=== PATIENT | female | born 1990 | race Caucasian/White ===

== ENCOUNTER 2017-01-15 21:47 | Inpatient (IN) | payer OTHER, SELFPAY ==
[~2017-01-15] VITALS: Ht 162.6 cm; Wt 55.5 kg
[2017-01-15] MEDS ORDERED: ACTIVATED CHARCOAL PO ONE (22:45)
[2017-01-15] MEDS ORDERED: SORBITOL PO ONE (22:45)
[2017-01-15] MEDS ORDERED: CHARCOAL ACTIVATED LIQUID 25 GM/120 ML BTL As Ordered ONE (22:53)
[2017-01-15] MEDS ORDERED: CHARCOAL ACTIVATED LIQUID 25 GM/120 ML BTL NG ONE (23:00)
[2017-01-15 23:01] LABS: MEAN CORPUSCULAR HEMOGLOBIN 26.8 pg (27.0-33.0); MEAN CORPUSCULAR HGB CONC 33.2 g/dl (32.0-36.5); MEAN CORPUSCULAR VOLUME 80.5 fl (80.0-96.0); RED CELL DISTRIBUTION WIDTH 14.4 % (11.5-14.5); WHITE BLOOD COUNT 5.8 K/mm3 (4.0-10.0)
[2017-01-15 23:14] LABS: CONTROL LINE HCG INT CTR LINE PRESENT
[2017-01-15 23:18] LABS: METHADONE URINE NEGATIVE (NEGATIVE)
[2017-01-15 23:48] LABS: ALBUMIN 3.9 GM/DL (3.2-5.2); ALBUMIN/GLOBULIN RATIO 1.22 (1.00-1.93); ALKALINE PHOSPHATASE 57 U/L (45-117); ALT/SGPT 20 U/L (12-78); ANION GAP 8 MEQ/L (8-16); AST/SGOT 15 U/L (15-37); BILIRUBIN,DIRECT < 0.1 MG/DL (0.0-0.2); BILIRUBIN,TOTAL 0.5 MG/DL (0.2-1.0); BLOOD UREA NITROGEN 11 MG/DL (7-18); CALCIUM LEVEL 9.2 MG/DL (8.5-10.1); CARBON DIOXIDE LEVEL 25 MEQ/L (21-32); CHLORIDE LEVEL 107 MEQ/L (98-107); CREATININE FOR GFR 0.61 MG/DL (0.55-1.02); GLOMERULAR FILTRATION RATE > 60.0 (>60); GLUCOSE, FASTING 90 MG/DL (70-105); POTASSIUM SERUM 3.5 MEQ/L (3.5-5.1); SODIUM LEVEL 140 MEQ/L (136-145); TOTAL PROTEIN 7.1 GM/DL (6.4-8.2)
[2017-01-16] MEDS ORDERED: ZOLO50TA PO (00:06)
--- NOTE | 2017-01-16 07:10 | ECGEPIP ---
Stationary ECG Study [facility] - ED Test Date: 2017-01-15 Pat Name: SHELBY CESAR Department: Room: - Gender: F Client Service And Consulting Manager: : 1990 Requested By: CATINA CLANCY Order Number: [id number] Reading MD: Quinn Duncan Measurements Intervals [place] Rate: 71 P: 68 AR: 183 QRS: 64 QRSD: 92 T: 45 QT: 348 QTc: 379 Interpretive Statements SINUS RHYTHM WITH SINUS ARRHYTHMIA NO PRIORS Electronically Signed On 01-16-2017 7:10:15 EDT by Quinn Duncan
[2017-01-16 09:05] VITALS: BP 125/85
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
[2017-01-16] MEDS ORDERED: HYDR100C PO (11:08)
[2017-01-16] MEDS ORDERED: AMBI5TAB PO (11:08)
[2017-01-16] MEDS ORDERED: MIREIUD IU (11:09)
[2017-01-16] MEDS ORDERED: traZODone 50 MG TAB PO PRN (11:15)
[2017-01-16] MEDS ORDERED: MOM 30ML SUSPENSION UDC PO PRN (11:15)
[2017-01-16] MEDS ORDERED: MAALOX 30 ML SUSP *UDC PO PRN (11:15)
[2017-01-16] MEDS: CitaloPRAM (CeleXA) 10 MG TABLET PO SCH (15:42)
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
[2017-01-16 18:00] VITALS: BP 124/72
[2017-01-17 07:27] VITALS: BP 117/67
[2017-01-17] MEDS: CitaloPRAM (CeleXA) 10 MG TABLET PO SCH (08:17)
[2017-01-17 08:31] LABS: MEAN CORPUSCULAR HEMOGLOBIN 26.4 pg (27.0-33.0); MEAN CORPUSCULAR HGB CONC 32.2 g/dl (32.0-36.5); MEAN CORPUSCULAR VOLUME 82.1 fl (80.0-96.0); RED CELL DISTRIBUTION WIDTH 14.6 % (11.5-14.5); WHITE BLOOD COUNT 4.7 K/mm3 (4.0-10.0)
[2017-01-17 08:50] LABS: THYROXINE (T4) 10.7 UG/DL (4.5-12.0)
--- NOTE | 2017-01-17 09:13 | MHIPNPDOC ---
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 Patient denies prior psychiatric inpatient treatment, denied history of prior suicide attempts to appeals writer, however, per ER report, stated she has history of 2 prior suicide attempts as teenager by way of strangulation and cutting, endorses history of self-injurious behavior involving cutting between the ages of 14 and 15. Casket Assembler met with patient today to assess treatment progress on inpatient unit. Patient continues to appear depressed, is tearful at times, rates current anxiety level as 1/10, depression 7/10 adding "I feel more depressed when I'm alone," denies suicidal and homicidal ideation, denies auditory and visual hallucinations, denies urge to engage in self-injurious behavior. Patient started Celexa yesterday and utilized trazodone for sleep last night, reports some improvement to sleep but indicates trazodone was only partially effective, makes request for trazodone dose increase. Patient states energy level remains low and she continues to struggle with concentration and focus challenges, described appetite as "normal." Patient states visited last night and describes visit as "sad but okay, I'm still angry but I'm not really sure why." Patient speaks openly about recent incident where she feels her was " not there for me, he went to a movie with friends and ignored me when I said I needed him for support." Patient denies symptoms of physical pain and presents with no signs of acute distress at time of interaction. VITALS: See below NEW TEST RESULTS: 7/14/17 labs indicated elevated RDW and low Hgb, HCT, MCH, TSH within normal limits. PA is aware and monitoring. MEDICAL/SURGICAL HISTORY: Patient denies history of chronic health conditions, has history of wisdom tooth extraction. Patient denies history of seizure or head injury. Lab results at time of admission indicate low Hgb, HCT, MCH, and elevated TSH. PA is aware and evaluating HCG negative. Patient utilizes Mirena device. Risks of psychotropic medications to unborn child should patient become while taking psychotropic medication were reviewed and patient verbalized understanding. 01/16/17 EKG sinus rhythm with sinus arrhythmia no priors. Patient is asymptomatic, clinical consultation sought with recommendation made for follow- up outpatient. UDS negative CURRENT MEDICATIONS: See below MENTAL STATUS EXAMINATION: General appearance: Patient is a 26-year old female, who is cooperative and pleasant, engageable, makes fair eye contact, appears less disheveled today, dressed in hospital clothing, ambulates with steady gait, appears stated age Speech: Of normal rate, rhythm, volume, spontaneous, coherent Thought processes: Linear, logical, rational Thought content: Rational, logical, no tangentiality or paranoia noted Abstract reasoning and computation: Appears intact Description of associations: Intact Description of abnormal or psychotic thoughts: Denies suicidal and homicidal ideation, denies auditory or visual hallucinations, does not appear to be responding to internal stimuli, does not endorse bizarre or paranoid ideations, and denies preoccupation with violence or obsessions Judgment: Poor Insight: Poor Orientation: A and O 3 Recent and remote memory: Appears intact Attention span and concentration: Appears within normal limits Fund of knowledge: Appears adequate Mood: "Pretty sad, depressed." Patient appears depressed and anxious, no mood lability noted Affect: Blunted, tearful at times. DIAGNOSES: Major depressive disorder, recurrent, severe, rule out adjustment disorder ASSESSMENT: Patient appears to be adjusting to unit, is visible, engages selectively with peers, is participating in unit programming, is cooperative with staff, and has presented with no behavior management challenges. Patient reports some improvement to symptoms of anxiety, continues to feel depressed, states she did not sleep well last night and requests dose increase to trazodone. Patient denies medication side effects. Will increase Celexa and trazodone in effort to reduce symptoms of anxiety and depression and improve sleep and will continue to titrate as tolerated by patient. Patient provided some conflicting information during assessment process, noted she has taken Zoloft in the past at 50 mg dose, states medication was initially effective but became ineffective, denies medication side effects, refused Zoloft medication restart. Patient has also taken hydroxyzine PRN in the past, denies need for medication at this time. Patient denies current suicidal or homicidal ideation and verbalizes awareness of how to access supportive services on the unit if needed. Will continue to monitor patient's response to medications and for medication side effects, will evaluate patient's safety, resolution of suicidal ideation, and discharge readiness. Patient indicates when prepared for discharge she would like to discharge to home with and children, adds she is agreeable to participating in outpatient psychotherapy and medication management, is requesting discharge coordination assistance in establishing continuity of care including individual therapy, marital counseling, and medication management through [employer] in preparation for PCS to [place] in February. MANAGEMENT PLAN: Increase Celexa to 20 mg po q am. Increase trazodone to 100 mg po hs PRN insomnia Maintain safety precautions Patient to attend groups and participate in unit programming to develop coping strategies Engage patient in discharge planning process and arrange meeting with support system to ensure safe discharge planning when appropriate Patient to follow up with PCM upon discharge TIME SPENT: 35 minutes Vital Signs Vital Signs Date Time Temp Pulse Resp B/P (MAP) Pulse Ox O2 Delivery O2 Flow Rate FiO2 01/17/17 07:27 98.5 69 16 117/67 (84) Room Air 01/16/17 09:05 99 Laboratory Data 24H Labs Laboratory Tests 2 01/17/17 07:31: Thyroid Stimulating Hormone (TSH) 3.170, Free Thyroxine Index 3.5, Thyroxine (T4 ) 10.7, Triiodothyronine (T3) Uptake 33 CBC/BMP Laboratory Tests 01/17/17 07:31 Red Blood Count 4.25, Mean Corpuscular Volume 82.1, Mean Corpuscular Hemoglobin 26.4 L, Mean Corpuscular Hemoglobin Concent 32.2, Red Cell Distribution Width 14.6 H Current Medications Current Medications Acetaminophen (Tylenol Tab) 650 mg Q6HP PRN PO HEADACHE or DISCOMFORT; Start at 11:15; Stop 02/15/17 at 11:14 Al Hydrox/Mg Hydrox/Simethicone (Mylanta) 30 ml Q4HP PRN PO HEARTBURN/ INDIGESTION; Start 01/16/17 at 11:15; Stop 02/15/17 at 11:14 Citalopram Hydrobromide (CeleXA) 10 mg QAM PO Last administered on 01/17/17 08 :17; Start 01/16/17 at 09:00; Stop 02/15/17 at 08:59 Home Med (Med Rec Complete!) ASDIRECTED XX ; Start 01/16/17 at 00:15; Stop at 00:15; Status DC Magnesium Hydroxide (Milk Of Magnesia) 30 ml DAILYPRN PRN PO CONSTIPATION; Start 01/16/17 at 11:15; Stop 02/15/17 at 11:14 Trazodone HCl (Desyrel) 50 mg QHSP PRN PO INSOMNIA Last administered on 21:44; Start 01/16/17 at 11:15; Stop 02/15/17 at 11:14 Allergies Coded Allergies: No Known Allergies (Unverified , 01/15/17) Ailin Maza Jan 17, 2017 09:13
[2017-01-17] MEDS ORDERED: traZODone 100 MG TAB PO PRN (11:15)
[2017-01-17] MEDS ORDERED: CitaloPRAM (CeleXA) 10 MG TABLET PO ONE (11:15)
[2017-01-17 18:00] VITALS: BP 132/86
[2017-01-18] MEDS: ACETAMINOPHEN TAB 650MG DOSE (2X325MG) PO PRN ×2 (06:24→19:01)
[2017-01-18 06:43] VITALS: BP 127/75
[2017-01-18 07:47] LABS: MEAN CORPUSCULAR HEMOGLOBIN 26.5 pg (27.0-33.0); MEAN CORPUSCULAR HGB CONC 32.5 g/dl (32.0-36.5); MEAN CORPUSCULAR VOLUME 81.4 fl (80.0-96.0); RED CELL DISTRIBUTION WIDTH 14.4 % (11.5-14.5)
[2017-01-18 08:05] LABS: ANION GAP 6 MEQ/L (8-16); BLOOD UREA NITROGEN 17 MG/DL (7-18); CALCIUM LEVEL 9.3 MG/DL (8.5-10.1); CARBON DIOXIDE LEVEL 28 MEQ/L (21-32); CHLORIDE LEVEL 104 MEQ/L (98-107); CREATININE FOR GFR 0.63 MG/DL (0.55-1.02); GLOMERULAR FILTRATION RATE > 60.0 (>60); GLUCOSE, FASTING 92 MG/DL (70-105); MAGNESIUM LEVEL 2.2 MG/DL (1.8-2.4); POTASSIUM SERUM 4.1 MEQ/L (3.5-5.1); SODIUM LEVEL 138 MEQ/L (136-145)
--- NOTE | 2017-01-18 08:25 | IPN ---
DATE: 01/18/[address] Bennett that there is a patient in inpatient mental health unit that had apparently fell last night around 12 o'clock midnight with no complaints. As per Dr. Bennett, the patient reported some lightheadedness, but he does not know the full story. Furthermore, Dr. Bennett does not know the name, so I had to call inpatient mental health and realized that the patient is Ms. Yohana El. Subsequently, I went to examine the patient. The patient reported that last night, after one hour after taking the double dose trazodone, the patient felt lightheaded when walking and subsequently was eased to the floor by one of the other inpatient mental health patients. The patient denies any loss of consciousness, stated that she occasionally had lightheaded on the outside, but it is very rare, about once or twice a year. This morning, the patient still does not feel completely back to herself initially. Denies any headache and subsequently went to sleep. This morning, the patient woke up and reported some posterior head pain, very mild, about 2 out of 10. Denies any nausea, fevers, chills, chest pain, pressure or discomfort or palpitations, vision change. No orthostatics were done last night, but the patient had normal vital signs right after her fall. Orthostatic this morning was negative. The patient denies any nausea or vomiting, auditory or visual hallucinations. VITAL SIGNS: Temperature 98.4, pulse 67, respirations 16, blood pressure 127/75. LABORATORY: Still pending. PHYSICAL EXAMINATION: GENERAL: The patient is alert and oriented times three and in no acute distress. HEENT: Normocephalic, atraumatic. PULMONARY: Bilaterally clear to auscultation. CARDIAC: Regular rate and rhythm. Normal S1, S2. ABDOMEN: Soft, nontender. Positive bowel sounds. EXTREMITIES: No edema in bilateral lower extremities. NEUROLOGIC: Cranial nerves II through XII grossly intact. No focal deficits. Ambulates without problem. ASSESSMENT AND PLAN: This is a 26-year-old female patient with underlying medical history of drug overdose, depression, anxiety, admitted under psychiatry. Medicine called for evaluation given fall last night with some mild headache. 1. Lightheadedness with fall, likely secondary to the double dose of trazodone. We will cut the dose back to what it was originally, 50 mg by mouth at night. We will advise getting orthostatics if that happens again from the start. Laboratory has been ordered. CT of the head has been ordered. Likely has some mild concussion but no soft tissue swelling on physical examination. Tylenol as needed. Neuro checks. If symptoms persist, we will advise cutting the trazodone altogether. 2. Depression, anxiety and suicide attempts. Further management as per psychiatrist.
[2017-01-18] MEDS: CitaloPRAM (CeleXA) 20 MG TAB PO SCH (08:38)
--- NOTE | 2017-01-18 10:06 | REP ---
CT Head without contrast HISTORY: Fall COMPARISON: None There is no intraparenchymal hemorrhage, acute infarct, mass or midline shift. The ventricular system is normal in appearance. There is no extra cerebral collection. There is no fracture. The visualized sinuses are clear. IMPRESSION: There is no intracranial lesion. Signed by Kamari Amaya MD 01/18/2017 09:58 A
[2017-01-18 18:00] VITALS: BP 123/80
--- NOTE | 2017-01-18 19:36 | IPN ---
DATE: 01/18/2017 VITAL SIGNS: Temperature 98.4, pulse 67, respirations 16, blood pressure 127/75. 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 She has a diagnosis of major depression, recurrent. The patient felt quite depressed this morning initially. She left group early. She went to her bedroom and cried. Her mood is better this afternoon however. She is socializing more and finds social interactions therapeutic. Last night she fell after taking her trazodone dose of 100 mg at bedtime. The patient had a CT scan of the head which was negative. Her trazodone dosage was hence lowered. MENTAL STATUS EXAMINATION: The patient is alert, oriented and cooperative. Affect is sad. Mood is moderately depressed, mildly anxious. She is not currently voicing any suicidal ideation. No signs of psychosis, not hearing voices. No paranoia or thought disorder. Insight and judgment are fair. No signs of impulsivity. DIAGNOSIS: Major depression, recurrent. PLAN: Trazodone reduced to 50 mg at bedtime as needed. No change in Celexa. MTDD
[2017-01-19 06:25] VITALS: BP 107/62
[2017-01-19] MEDS: CitaloPRAM (CeleXA) 20 MG TAB PO SCH (08:35)
[2017-01-19] MEDS: hydrOXYzine 50 MG TAB PO PRN (11:20)
--- NOTE | 2017-01-19 13:58 | IPN ---
DATE: 01/19/2017 Temperature 98.9, pulse 87, respirations 16, blood pressure 107/62. CURRENT MEDICATIONS: - Celexa 20 mg in the morning - trazodone 50 mg at night as needed - Atarax 50 mg every 4 hours as needed HISTORY OF PRESENT ILLNESS: The patient reports anxiety symptoms. She has Atarax 100 mg at home but that is too strong. The patient is given a new order for Atarax 50 mg every 4 hours as needed. The patient was afraid to take the trazodone last night, even the lower dosage. Subsequently, she did not sleep well last night at all. Her could not come in last night for visiting hours. She has spoken to him and the children by phone, however. She has no panic attacks. She is tolerating the Celexa well. She is encouraged to take her trazodone tonight. MENTAL STATUS EXAMINATION: The patient is alert, oriented and cooperative. Mood is still mildly to moderately depressed. Anxiety is mild to moderate as well. She is not currently suicidal. No sign of psychosis. Insight and judgment are fair. Grooming and hygiene appear good. No signs of impulsivity. DIAGNOSIS: Major depression, recurrent, moderate severity. PLAN: Atarax 50 mg every 4 hours as needed for anxiety.
[2017-01-19 18:00] VITALS: BP 138/87
[2017-01-19] MEDS: traZODone 50 MG TAB PO PRN (22:58)
[2017-01-20 06:00] VITALS: BP 132/82
[2017-01-20] MEDS: CitaloPRAM (CeleXA) 20 MG TAB PO SCH (08:04)
--- NOTE | 2017-01-20 09:23 | MHIPNPDOC ---
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 Patient indicates "I had been thinking about suicide for a while and I just wanted to stop feeling like this." Patient states she had a "bad day yesterday, my marriage is struggling, we are going to be PCS'ing in February, and I just found out yesterday that my is going to be deployed for 9 months in August." Patient reportedly went to [employer] to hot die picker dinner for family yesterday evening and then came home and overdosed on Ambien, was reportedly talking to her mother on the telephone when noticed change in mental status and patient admitted to overdose. Patient denies prior psychiatric inpatient treatment, denied history of prior suicide attempts to contract writer, however, per ER report, stated she has history of 2 prior suicide attempts as teenager by way of strangulation and cutting, endorses history of self-injurious behavior involving cutting between the ages of 14 and 15. Electric Vehicle Electrician met with patient today to assess treatment progress on inpatient unit. Patient was observed to be lying in bed, crying, indicated she does not feel supported by her family and informs contract writer that her parents "yelled at me when I called them on the phone and told me I'm stupid because I'm in the hospital." Patient also notes she feels she cannot talk to her . Patient reports current anxiety level of 4/10, depression 8/10, denies suicidal and homicidal ideation, denies auditory and visual hallucinations, denies urge to engage in self-injurious behavior. Patient states she is uncertain as Celexa is helping to address symptoms of depression noting, "I definitely don't feel worse, but I' m not sure if I feel better." Patient reports improvement to sleep with trazodone, also utilized hydroxyzine which she indicates was helpful in reducing symptoms of anxiety. Patient denies medication side effects. Patient informs contract writer she has a history of "dizziness and passing out" which preexist psychotropic medication trial adding, "in the past I get lightheaded and then I fall." Patient states energy level remains low and she continues to struggle with concentration and focus challenges, indicates appetite is stable. Patient states visited over the weekend and notes she does not feel he is supportive, adds she is not sure if she wants to continue marriage. Patient denies symptoms of physical pain and presents with no signs of acute distress at time of interaction. VITALS: See below NEW TEST RESULTS: 01/18/17 labs indicate low Hgb, HCT, MCH, anion gap. PA is aware and evaluating MEDICAL/SURGICAL HISTORY: Patient denies history of chronic health conditions, has history of wisdom tooth extraction. Patient denies history of seizure or head injury. Lab results at time of admission indicate low Hgb, HCT, MCH, and elevated TSH. PA has evaluated. 01/17/17 labs indicated elevated RDW and low Hgb, HCT, MCH, TSH within normal limits. PA is aware and monitoring. HCG negative. Patient utilizes Mirena device. Risks of psychotropic medications to unborn child should patient become while taking psychotropic medication were reviewed and patient verbalized understanding. 01/16/17 EKG sinus rhythm with sinus arrhythmia no priors. Patient is asymptomatic, clinical consultation sought with recommendation made for follow- up outpatient. UDS negative 01/18/[address] no intracranial lesion CURRENT MEDICATIONS: See below MENTAL STATUS EXAMINATION: General appearance: Patient is a 26-year old female, who is cooperative, tearful and crying, makes poor eye contact, appears disheveled, dressed in own clothing, ambulates with steady gait, appears stated age Speech: Of normal rate, rhythm, volume, spontaneous, coherent Thought processes: Linear, logical, rational Thought content: Rational, logical, no tangentiality or paranoia noted Abstract reasoning and computation: Appears intact Description of associations: Intact Description of abnormal or psychotic thoughts: Denies suicidal and homicidal ideation, denies auditory or visual hallucinations, does not appear to be responding to internal stimuli, does not endorse bizarre or paranoid ideations, and denies preoccupation with violence or obsessions Judgment: Poor Insight: Poor Orientation: A and O 3 Recent and remote memory: Appears intact Attention span and concentration: Appears within normal limits Fund of knowledge: Appears adequate Mood: "I'm sad, I woke up that way, I don't know why." Patient appears depressed and anxious, no mood lability noted Affect: Blunted, tearful at times. DIAGNOSES: Major depressive disorder, recurrent, severe, rule out adjustment disorder ASSESSMENT: Patient appears to be adjusting to unit, is visible at times, engages selectively with peers, is participating in unit programming, is cooperative with staff, and has presented with no behavior management challenges. Patient indicates today she is not sure if Celexa is helping to reduce symptoms of anxiety and depression, indicates medication is definitely not exacerbating symptoms. Patient is now taking trazodone and hydroxyzine as needed, indicates medications are effective and denies medication side effects. Patient denies repeat of episode of dizziness which resulted in fall over weekend, has undergone head CT. Patient denies current suicidal or homicidal ideation and verbalizes awareness of how to access supportive services on the unit if needed. Will continue to monitor patient's response to medications and for medication side effects, will evaluate patient's safety, resolution of suicidal ideation, and discharge readiness. Patient indicates when prepared for discharge she would like to discharge to home with children, states today she is not sure she wants to continue marriage with but notes she intends to PCS to [place]. Patient states she is agreeable to participating in outpatient psychotherapy and medication management, is requesting discharge coordination assistance in establishing continuity of care including individual therapy, marital counseling, and medication management through [employer] in preparation for PCS to [place] in February. MANAGEMENT PLAN: Continue Celexa to 20 mg po q am, trazodone 50 mg po hs PRN insomnia, and trucks is using 50 mg po q 4 hours PRN anxiety. Maintain safety precautions Patient to attend groups and participate in unit programming to develop coping strategies Engage patient in discharge planning process and arrange meeting with support system to ensure safe discharge planning when appropriate Patient to follow up with PCM upon discharge TIME SPENT: 35 minutes Vital Signs Vital Signs Date Time Temp Pulse Resp B/P (MAP) Pulse Ox O2 Delivery O2 Flow Rate FiO2 01/20/17 06:00 97.9 100 16 132/82 (99) 01/17/17 18:00 Room Air 01/16/17 09:05 99 Current Medications Current Medications Acetaminophen (Tylenol Tab) 650 mg Q6HP PRN PO HEADACHE or DISCOMFORT Last administered on 01/18/17t 19:01; Start 01/16/17 at 11:15; Stop 02/15/17 at 11:14 Al Hydrox/Mg Hydrox/Simethicone (Mylanta) 30 ml Q4HP PRN PO HEARTBURN/ INDIGESTION; Start 01/16/17 at 11:15; Stop 02/15/17 at 11:14 Citalopram Hydrobromide (CeleXA) 10 mg QAM PO Last administered on 01/17/17 08 :17; Start 01/16/17 at 09:00; Stop 01/17/17 at 11:07; Status DC Citalopram Hydrobromide (CeleXA) 20 mg QAM PO Last administered on 01/20/17 08 :04; Start 01/18/17 at 09:00; Stop 02/17/17 at 08:59 Home Med (Med Rec Complete!) ASDIRECTED XX ; Start 01/16/17 at 00:15; Stop at 00:15; Status DC Hydroxyzine HCl (Atarax) 50 mg Q4HP PRN PO ANXIETY/AGITATION Last administered on 01/19/17 11:20; Start 01/19/17 at 10:00; Stop 02/18/17 at 09:59 Magnesium Hydroxide (Milk Of Magnesia) 30 ml DAILYPRN PRN PO CONSTIPATION; Start 01/16/17 at 11:15; Stop 02/15/17 at 11:14 Trazodone HCl (Desyrel) 50 mg QHSP PRN PO INSOMNIA Last administered on 21:44; Start 01/16/17 at 11:15; Stop 01/17/17 at 11:06; Status DC Trazodone HCl (Desyrel) 50 mg QHSP PRN PO INSOMNIA Last administered on 22:58; Start 01/18/17 at 07:00; Stop 02/17/17 at 06:59 Trazodone HCl (Desyrel) 100 mg QHSP PRN PO INSOMNIA Last administered on 23:07; Start 01/17/17 at 11:15; Stop 01/18/17 at 07:00; Status DC Allergies Coded Allergies: No Known Allergies (Unverified , 01/15/17) Ailin Maza Jan 20, 2017 09:22
[2017-01-20 11:26] LABS: MEAN CORPUSCULAR HEMOGLOBIN 26.6 pg (27.0-33.0); MEAN CORPUSCULAR VOLUME 80.4 fl (80.0-96.0); RED CELL DISTRIBUTION WIDTH 14.4 % (11.5-14.5); WHITE BLOOD COUNT 5.8 K/mm3 (4.0-10.0)
[2017-01-20 11:57] LABS: FOLATE 17.5 NG/ML (>5.4)
[2017-01-20 11:58] LABS: PERCENT SATURATION 9.2 % (13.2-37.4)
[2017-01-20] MEDS: FERROUS SULFATE 325MG TAB PO SCH (15:57)
[2017-01-20 18:00] VITALS: BP 118/63
[2017-01-20] MEDS: hydrOXYzine 50 MG TAB PO PRN (18:46)
[2017-01-20] MEDS: traZODone 50 MG TAB PO PRN (22:57)
[2017-01-21 06:34] VITALS: BP 114/62
[2017-01-21] MEDS: CitaloPRAM (CeleXA) 20 MG TAB PO SCH (08:45)
[2017-01-21] MEDS: FERROUS SULFATE 325MG TAB PO SCH (08:45)
[2017-01-21] MEDS: hydrOXYzine 50 MG TAB PO PRN (10:25)
[2017-01-21 18:00] VITALS: BP 130/83
--- NOTE | 2017-01-21 18:26 | MHIPNPDOC ---
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 Patient denies prior psychiatric inpatient treatment, denied history of prior suicide attempts to keno writer / runner, however, per ER report, stated she has history of 2 prior suicide attempts as teenager by way of strangulation and cutting, endorses history of self-injurious behavior involving cutting between the ages of 14 and 15. Lead Ios Developer met with patient today to assess treatment progress on inpatient unit. Patient was observed to be sitting up in bed, stated she feels "a little better today," reports some improvement to symptoms of anxiety, moderate depression, denied suicidal and homicidal ideation, denied auditory and visual hallucinations, denied urge to engage in self-injurious behavior. For most of interaction patient sat with face buried under hair, in hands, between knees, made very little eye contact with keno writer / runner, spoke in low volume and provided minimal responses. Patient indicates she thinks, but remains unsure, if Celexa is helping to address symptoms of depression, denies medication side effects. Patient has been utilizing hydroxyzine to address intermittent symptoms of anxiety, indicates medication is effective. Patient states trazodone is ineffective, makes request for dosing increase, was reminded of recent syncopal episode which patient has attributed to medication though she also reports having a pre-existing history of "dizziness and falling." Patient states energy level remains low and she continues to struggle with concentration and focus challenges, indicates appetite is stable. Patient informs keno writer / runner today she is not sure if she wants to attempt to salvage relationship with stating, "I've given up but want to try for the kids, he is not there to support me." Patient denies symptoms of physical pain and presents with no signs of acute distress at time of interaction. Addendum: Though patient has indicated she is eating regularly, keno writer / runner was informed by staff that patient is not eating well. Patient indicates she has a history of "starving myself when I was 14 because I was being bullied; I got down to 90 pounds." Patient has been placed on I and O for monitoring purposes. VITALS: See below NEW TEST RESULTS: 01/18/17 labs indicate low Hgb, HCT, MCH, anion gap. PA is aware and addressing MEDICAL/SURGICAL HISTORY: Patient denies history of chronic health conditions, has history of wisdom tooth extraction. Patient denies history of seizure or head injury. Lab results at time of admission indicate low Hgb, HCT, MCH, and elevated TSH. PA has evaluated. 01/17/17 labs indicated elevated RDW and low Hgb, HCT, MCH, TSH within normal limits. PA is aware and monitoring. HCG negative. Patient utilizes Mirena device. Risks of psychotropic medications to unborn child should patient become while taking psychotropic medication were reviewed and patient verbalized understanding. 01/16/17 EKG sinus rhythm with sinus arrhythmia no priors. Patient is asymptomatic, clinical consultation sought and patient has been informed that recommendation is being made for follow-up outpatient. UDS negative 01/18/[address] no intracranial lesion CURRENT MEDICATIONS: See below MENTAL STATUS EXAMINATION: General appearance: Patient is a 26-year old female, who is generally cooperative, tearful at times, makes poor eye contact, appears less disheveled today, dressed in own clothing, ambulates with steady gait, appears stated age Speech: Of normal rate, rhythm, low volume, spontaneous, coherent Thought processes: Linear, logical, rational Thought content: Rational, logical, no tangentiality or paranoia noted Abstract reasoning and computation: Appears intact Description of associations: Intact Description of abnormal or psychotic thoughts: Denies suicidal and homicidal ideation, denies auditory or visual hallucinations, does not appear to be responding to internal stimuli, does not endorse bizarre or paranoid ideations, and denies preoccupation with violence or obsessions Judgment: Poor Insight: Poor Orientation: A and O 3 Recent and remote memory: Appears intact Attention span and concentration: Appears within normal limits Fund of knowledge: Appears adequate Mood: "I'm thinking maybe I'm less sad today." Patient appears depressed and anxious, no mood lability noted Affect: Flat, tearful at times, no brightening DIAGNOSES: Major depressive disorder, recurrent, severe, rule out adjustment disorder. Eating disorder by history ASSESSMENT: Patient appears to be adjusting to unit, is visible at times, engages selectively with peers, is participating in some unit programming. Per EMR, patient apparently attempted to monopolize group therapy today, was very vocal about dissatisfaction with staff. Patient has indicates she thinks Celexa is helping to reduce symptoms of anxiety and depression, is agreeable to dose increase in effort to further address symptoms. Patient is making requests for trazodone dose increase, however, due to patient attributing recent lightheadedness and fall to medication, patient is receptive to trialing low- dose Abilify hs in effort to address mood and improve sleep. Patient is aware she has hydroxyzine available to her as needed, denies medication side effects. Patient denies repeat of episode of dizziness which resulted in fall over weekend, has undergone head CT. Patient denies current suicidal or homicidal ideation and verbalizes awareness of how to access supportive services on the unit if needed. Clinical consultation sought regarding need for CPS report, keno writer / runner informed that CPS will not accept report if stable adult present during events in question. pilates coordinator is attempting to communicate with Sylvester Almanza to ensure safe discharge as patient and prepare to [facility] to [place]. Will continue to monitor patient's response to medications and for medication side effects, will evaluate patient's safety, resolution of suicidal ideation, and discharge readiness. Patient indicates when prepared for discharge she would like to discharge to home with children, reiterates she is not sure she wants to continue marriage with but notes she intends to PCS to [place] with him and their children. Patient states she is agreeable to participating in outpatient psychotherapy and medication management, is requesting discharge coordination assistance in establishing continuity of care including individual therapy, marital counseling, and medication management through [email or web address] in preparation for PCS to [place] in February. MANAGEMENT PLAN: Increase Celexa to 30 mg po q am. Discontinue trazodone 50 mg po hs PRN insomnia. Initiate Abilify 2.5 mg po q hs, continue hydroxyzine 50 mg po q 4 hours PRN anxiety. Patient placed on I and o Maintain safety precautions Patient to attend groups and participate in unit programming to develop coping strategies Engage patient in discharge planning process and arrange meeting with support system to ensure safe discharge planning when appropriate Patient to follow up with PCM upon discharge TIME SPENT: 35 minutes Vital Signs Vital Signs Date Time Temp Pulse Resp B/P (MAP) Pulse Ox O2 Delivery O2 Flow Rate FiO2 01/21/17 06:34 97.7 85 18 114/62 (79) 01/17/17 18:00 Room Air 01/16/17 09:05 99 Current Medications Current Medications Acetaminophen (Tylenol Tab) 650 mg Q6HP PRN PO HEADACHE or DISCOMFORT Last administered on 01/18/17 19:01; Start 01/16/17 at 11:15; Stop 02/15/17 at 11:14 Al Hydrox/Mg Hydrox/Simethicone (Mylanta) 30 ml Q4HP PRN PO HEARTBURN/ INDIGESTION; Start 01/16/17 at 11:15; Stop 02/15/17 at 11:14 Aripiprazole (AbiLIFY) 2.5 mg QHS PO ; Start 01/21/17 at 21:00; Stop 02/20/17 at 20:59 Citalopram Hydrobromide (CeleXA) 10 mg QAM PO Last administered on 01/17/17 08 :17; Start 01/16/17 at 09:00; Stop 01/17/17 at 11:07; Status DC Citalopram Hydrobromide (CeleXA) 20 mg QAM PO Last administered on 01/21/17 08 :45; Start 01/18/17 at 09:00; Stop 01/21/17 at 18:03; Status DC Citalopram Hydrobromide (CeleXA) 30 mg QAM PO ; Start 01/22/17 at 09:00; Stop at 08:59 Ferrous Sulfate (Ferrous Sulfate) 325 mg DAILY PO Last administered on 08:45; Start 01/20/17 at 09:00; Stop 02/19/17 at 08:59 Home Med (Med Rec Complete!) ASDIRECTED XX ; Start 01/16/17 at 00:15; Stop at 00:15; Status DC Hydroxyzine HCl (Atarax) 50 mg Q4HP PRN PO ANXIETY/AGITATION Last administered on 01/21/17 10:25; Start 01/19/17 at 10:00; Stop 02/18/17 at 09:59 Magnesium Hydroxide (Milk Of Magnesia) 30 ml DAILYPRN PRN PO CONSTIPATION; Start 01/16/17 at 11:15; Stop 02/15/17 at 11:14 Trazodone HCl (Desyrel) 50 mg QHSP PRN PO INSOMNIA Last administered on 21:44; Start 01/16/17 at 11:15; Stop 01/17/17 at 11:06; Status DC Trazodone HCl (Desyrel) 50 mg QHSP PRN PO INSOMNIA Last administered on 22:57; Start 01/18/17 at 07:00; Stop 01/21/17 at 18:03; Status DC Trazodone HCl (Desyrel) 100 mg QHSP PRN PO INSOMNIA Last administered on 23:07; Start 01/17/17 at 11:15; Stop 01/18/17 at 07:00; Status DC Allergies Coded Allergies: No Known Allergies (Unverified , 01/15/17) Ailin Maza Jan 21, 2017 18:26
[2017-01-22] MEDS: ACETAMINOPHEN TAB 650MG DOSE (2X325MG) PO PRN (03:20)
[2017-01-22 06:32] VITALS: BP 137/92
[2017-01-22] MEDS: CitaloPRAM (CeleXA) 10 MG TABLET PO SCH (08:27)
[2017-01-22] MEDS: FERROUS SULFATE 325MG TAB PO SCH (08:27)
--- NOTE | 2017-01-22 09:43 | MHIPNPDOC ---
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 Patient denies prior psychiatric inpatient treatment, denied history of prior suicide attempts to short story writer, however, per ER report, stated she has history of 2 prior suicide attempts as teenager by way of strangulation and cutting, endorses history of self-injurious behavior involving cutting between the ages of 14 and 15. Elephant Keeper met with patient today to assess treatment progress on inpatient unit. Patient was observed to be sitting up in bed, stated she feels her depression is somewhat better, indicates she is not sleeping well due to nighttime waking and roommate talking and snoring. Patient reports current anxiety level of 3/10 , depression 3/10, denies suicidal and homicidal ideation, denies auditory and visual hallucinations, denies urge to engage in self-injurious behavior. Patient feels medication regimen is effective except for sleep aid, makes request for new sleep medication. Patient continues to utilize hydroxyzine to address intermittent symptoms of anxiety. Patient denies medication side effects , then informs short story writer of intermittent and brief symptoms of "racing heart," began 2 days ago, patient indicates she thinks is anxiety related but is not certain. Patient denies headache, dizziness, shortness of breath, palpitations, and chest pain. Patient reports mild improvement to energy level, continues to struggle with concentration and focus, states appetite is stable and she has been eating more. Patient notes she had disturbing visit with and mother -in-law last night, states she wanted her [id number] to come for visit but not her who apparently brought their children to hospital as well which she did not want. Patient reiterates today she is not sure if she wants to continue in marriage. Patient denies symptoms of physical pain and presents with no signs of acute distress at time of interaction. Addendum: Though patient has indicated she is eating regularly, short story writer was informed on 01/21/17 by staff that patient is not eating well. Patient indicates she has a history of "starving myself when I was 14 because I was being bullied ; I got down to 90 pounds." Patient has been placed on I and O for monitoring purposes. VITALS: See below NEW TEST RESULTS: 01/18/17 labs indicate low Hgb, HCT, MCH, anion gap. PA has addressed. MEDICAL/SURGICAL HISTORY: Patient denies history of chronic health conditions, has history of wisdom tooth extraction. Patient denies history of seizure or head injury. Lab results at time of admission indicate low Hgb, HCT, MCH, and elevated TSH. PA has evaluated. 01/17/17 labs indicated elevated RDW and low Hgb, HCT, MCH, TSH within normal limits. PA is aware and monitoring. HCG negative. Patient utilizes Mirena device. Risks of psychotropic medications to unborn child should patient become while taking psychotropic medication were reviewed and patient verbalized understanding. 01/16/17 EKG sinus rhythm with sinus arrhythmia no priors. Patient is asymptomatic, clinical consultation sought and patient has been informed that recommendation is being made for follow-up outpatient. UDS negative 01/18/[address] no intracranial lesion ECHO ordered 01/22/17 post report of "racing heart," has history of abnormal EKG and syncopal episodes CURRENT MEDICATIONS: See below MENTAL STATUS EXAMINATION: General appearance: Patient is a 26-year old female, who is cooperative, no tearfulness today, makes improved eye contact, and exhibits adequate personal hygiene, dressed in own clothing, ambulates with steady gait, appears stated age Speech: Of normal rate, rhythm, low volume, spontaneous, coherent Thought processes: Linear, logical, rational Thought content: Rational, logical, no tangentiality or paranoia noted Abstract reasoning and computation: Appears intact Description of associations: Intact Description of abnormal or psychotic thoughts: Denies suicidal and homicidal ideation, denies auditory or visual hallucinations, does not appear to be responding to internal stimuli, does not endorse bizarre or paranoid ideations, and denies preoccupation with violence or obsessions Judgment: Poor Insight: Poor Orientation: A and O 3 Recent and remote memory: Appears intact Attention span and concentration: Appears within normal limits Fund of knowledge: Appears adequate Mood: "I'm feeling a little better." Patient appears slightly less depressed and anxious, no mood lability noted Affect: Blunted, more animated than yesterday, no tearfulness today, no brightening, congruent with mood DIAGNOSES: Major depressive disorder, recurrent, severe, rule out adjustment disorder. Eating disorder by history ASSESSMENT: Patient appears to be adjusting to unit, is visible at times, engages selectively with peers, is participating in some unit programming. Patient states Celexa and Abilify are helping to improve mood and reduce anxiety , has been utilizing hydroxyzine PRN, makes request for new sleep medication trial. Patient denies medication side effects at time of assessment. ECHO has been ordered due to patient report today of intermittent and brief symptoms of "racing heart," has history of syncopal episodes and abnormal EKG, currently denies cardiac related symptoms and has been instructed to inform nursing immediately if she experiences. Will initiate Rozerem in effort to improve sleep. Patient denies current suicidal or homicidal ideation and verbalizes awareness of how to access supportive services on the unit if needed. Clinical consultation has been sought regarding need for CPS report, short story writer informed that CPS will not accept report if stable adult present during events in question. digital coordinator is attempting to communicate with Sylvester Almanza to ensure safe discharge as patient and prepare to [facility] to [place]. Will continue to monitor patient's response to medications and for medication side effects, will evaluate patient's safety, resolution of suicidal ideation, and discharge readiness. Patient indicates when prepared for discharge she would like to discharge to home with children, reiterates she is not sure she wants to continue marriage with but notes she intends to PCS to [place] with him and their children. Patient states she is agreeable to participating in outpatient psychotherapy and medication management, is requesting discharge coordination assistance in establishing continuity of care including individual therapy, marital counseling, and medication management through [facility] in preparation for PCS to [place] in February. Patient has history of arrhythmia and recent abnormal EKG MANAGEMENT PLAN: Continue Celexa 30 mg po q am, Abilify 2.5 mg po q hs, and hydroxyzine 50 mg po q 4 hours PRN anxiety. Initiate med trial Rozerem 8 mg po hs PRN insomnia ECHO ordered 01/22/17 Patient remains on I and o Maintain safety precautions Patient to attend groups and participate in unit programming to develop coping strategies Engage patient in discharge planning process and arrange meeting with support system to ensure safe discharge planning when appropriate Patient to follow up with PCM regarding recent EKG results and any other health concerns upon discharge TIME SPENT: 35 minutes Vital Signs Vital Signs Date Time Temp Pulse Resp B/P (MAP) Pulse Ox O2 Delivery O2 Flow Rate FiO2 01/22/17 06:32 98.3 84 20 137/92 (107) Room Air 01/16/17 09:05 99 Current Medications Current Medications Acetaminophen (Tylenol Tab) 650 mg Q6HP PRN PO HEADACHE or DISCOMFORT Last administered on 01/22/17 03:20; Start 01/16/17 at 11:15; Stop 02/15/17 at 11:14 Al Hydrox/Mg Hydrox/Simethicone (Mylanta) 30 ml Q4HP PRN PO HEARTBURN/ INDIGESTION; Start 01/16/17 at 11:15; Stop 02/15/17 at 11:14 Aripiprazole (AbiLIFY) 2.5 mg QHS PO Last administered on 01/21/17 21:48; Start 01/21/17 at 21:00; Stop 02/20/17 at 20:59 Citalopram Hydrobromide (CeleXA) 10 mg QAM PO Last administered on 01/17/17 08 :17; Start 01/16/17 at 09:00; Stop 01/17/17 at 11:07; Status DC Citalopram Hydrobromide (CeleXA) 20 mg QAM PO Last administered on 01/21/17 08 :45; Start 01/18/17 at 09:00; Stop 01/21/17 at 18:03; Status DC Citalopram Hydrobromide (CeleXA) 30 mg QAM PO Last administered on 01/22/17 08 :27; Start 01/22/17 at 09:00; Stop 02/21/17 at 08:59 Ferrous Sulfate (Ferrous Sulfate) 325 mg DAILY PO Last administered on 08:27; Start 01/20/17 at 09:00; Stop 02/19/17 at 08:59 Home Med (Med Rec Complete!) ASDIRECTED XX ; Start 01/16/17 at 00:15; Stop at 00:15; Status DC Hydroxyzine HCl (Atarax) 50 mg Q4HP PRN PO ANXIETY/AGITATION Last administered on 01/21/17 10:25; Start 01/19/17 at 10:00; Stop 02/18/17 at 09:59 Magnesium Hydroxide (Milk Of Magnesia) 30 ml DAILYPRN PRN PO CONSTIPATION; Start 01/16/17 at 11:15; Stop 02/15/17 at 11:14 Trazodone HCl (Desyrel) 50 mg QHSP PRN PO INSOMNIA Last administered on 21:44; Start 01/16/17 at 11:15; Stop 01/17/17 at 11:06; Status DC Trazodone HCl (Desyrel) 50 mg QHSP PRN PO INSOMNIA Last administered on 22:57; Start 01/18/17 at 07:00; Stop 01/21/17 at 18:03; Status DC Trazodone HCl (Desyrel) 100 mg QHSP PRN PO INSOMNIA Last administered on 23:07; Start 01/17/17 at 11:15; Stop 01/18/17 at 07:00; Status DC Allergies Coded Allergies: No Known Allergies (Unverified , 01/15/17) Ailin Maza Jan 22, 2017 09:43
[2017-01-22 12:21] VITALS: BP_SYST 123; BP_SYST 143; BP_SYST 152; BP_DIAS 76; BP_DIAS 87; BP_DIAS 88
[2017-01-22] MEDS: hydrOXYzine 50 MG TAB PO PRN (16:40)
[2017-01-22 18:13] VITALS: BP 134/80
[2017-01-22] MEDS ORDERED: RAMELTEON 8 MG TAB (ROZEREM) PO SCH (21:00)
[2017-01-22] MEDS: RAMELTEON 8 MG TAB (ROZEREM) PO PRN (22:17)
--- NOTE | 2017-01-23 06:04 | ECHO ---
DATE OF PROCEDURE: 01/22/2017 AGE: 26 GENDER: Female. REFERRING PHYSICIAN: Ailin Maza, nurse practitioner. HEIGHT: 64 inches. WEIGHT: 125 pounds. BODY SURFACE AREA: 1.61 sq m. INPATIENT: Room 2107. INDICATION: Syncope. MEASUREMENTS: 2D MEASUREMENTS: RV - 2.4 cm LV- 3.8 cm Septum - 0.9 cm Posterior wall - 0.9 cm Aortic root - 2.7 cm LA - 2.8 cm LVEF - 65% COMMENTS: Normal sinus rhythm without intraventricular conduction disturbance. Normal appearing cardiac chamber sizes and wall thickness. From the parasternal and apical projections, wall motion was symmetrical and hyperkinetic. Normal-appearing mitral valvular apparatus and leaflet excursion with no posterior systolic buckling. Three equal size aortic cusps of normal thickness and cusp separation. No apparent intracardiac mass or pericardial effusion. Color flow Doppler study taken from the parasternal and apical projection showed trace tricuspid but no mitral or aortic insufficiency. CONCLUSIONS: Unable to detect a structural or functional abnormality to account for the patient's syncopal spell. Normal-appearing echocardiogram. edited: 01/23/2017 [id number]
[2017-01-23 07:06] VITALS: BP 121/68
[2017-01-23] MEDS: FERROUS SULFATE 325MG TAB PO SCH (08:39)
[2017-01-23] MEDS: CitaloPRAM (CeleXA) 10 MG TABLET PO SCH (08:39)
--- NOTE | 2017-01-23 09:10 | MHIPNPDOC ---
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 Patient denies prior psychiatric inpatient treatment, denied history of prior suicide attempts to junior copywriter, however, per ER report, stated she has history of 2 prior suicide attempts as teenager by way of strangulation and cutting, endorses history of self-injurious behavior involving cutting between the ages of 14 and 15. Front Elevator Operator met with patient today to assess treatment progress on inpatient unit. Patient was observed to be visible in lounge, engaging selectively, readily met with junior copywriter and indicated her symptoms of depression and anxiety are improving, states she slept better last night but was awoken due to a roommate, indicates she wants to continue Rozerem at this time, believes medication was effective. Patient reports current anxiety level of 2/10, depression 4/10, attributes symptoms of depression to "stuff coming up recently about things that happened to me as a kid," denies suicidal and homicidal ideation, denies auditory and visual hallucinations, denies urge to engage in self-injurious behavior. Patient continues to utilize hydroxyzine to address intermittent symptoms of anxiety, has not needed to utilize as yet today. Patient denies medication side effects, indicates she has not experienced symptoms of "racing heart" or syncope, reiterates she believes "racing heart" symptoms were related to anxiety. Patient denies headache, dizziness, shortness of breath, palpitations, and chest pain. Patient reports continuing improvement to energy level, continues to struggle with concentration and focus, states appetite is stable and she has been eating more. Patient states her visited last night and "wanted to talk," notes visitation made her feel uncomfortable and states she remains undecided in terms of whether she wants to continue in marital relationship. Patient denies symptoms of physical pain and presents with no signs of acute distress at time of interaction. Addendum: Though patient has indicated she is eating regularly, junior copywriter was informed on 01/21/17 by staff that patient is not eating well. Patient indicates she has a history of "starving myself when I was 14 because I was being bullied ; I got down to 90 pounds." Patient has been placed on I and O for monitoring purposes. VITALS: See below NEW TEST RESULTS: 01/18/17 labs indicate low Hgb, HCT, MCH, anion gap. PA has addressed. MEDICAL/SURGICAL HISTORY: Patient denies history of chronic health conditions, has history of wisdom tooth extraction. Patient denies history of seizure or head injury. Lab results at time of admission indicate low Hgb, HCT, MCH, and elevated TSH. PA has evaluated. 01/17/17 labs indicated elevated RDW and low Hgb, HCT, MCH, TSH within normal limits. PA is aware and monitoring. HCG negative. Patient utilizes Mirena device. Risks of psychotropic medications to unborn child should patient become while taking psychotropic medication were reviewed and patient verbalized understanding. 01/16/17 EKG sinus rhythm with sinus arrhythmia no priors. Patient is asymptomatic, clinical consultation sought and patient has been informed that recommendation is being made for follow-up outpatient. UDS negative 01/18/[address] no intracranial lesion ECHO ordered 01/22/17 post report of "racing heart," has history of abnormal EKG and syncopal episodes - completed, results pending CURRENT MEDICATIONS: See below MENTAL STATUS EXAMINATION: General appearance: Patient is a 26-year old female, who is cooperative, no tearfulness today, makes improved eye contact, and exhibits adequate personal hygiene, dressed in own clothing, ambulates with steady gait, appears stated age Speech: Of normal rate, rhythm, low volume, spontaneous, coherent, monotone Thought processes: Linear, logical, rational Thought content: Rational, logical, no tangentiality or paranoia noted Abstract reasoning and computation: Appears intact Description of associations: Intact Description of abnormal or psychotic thoughts: Denies suicidal and homicidal ideation, denies auditory or visual hallucinations, does not appear to be responding to internal stimuli, does not endorse bizarre or paranoid ideations, and denies preoccupation with violence or obsessions Judgment: Limited, some improvement noted Insight: Limited, some improvement noted Orientation: A and O 3 Recent and remote memory: Appears intact Attention span and concentration: Appears within normal limits Fund of knowledge: Appears adequate Mood: "I'm feeling a little better today." Patient appears slightly less depressed and anxious, no mood lability noted Affect: Blunted, somewhat more animated than yesterday, no tearfulness today, no brightening, congruent with mood DIAGNOSES: Major depressive disorder, recurrent, severe, rule out adjustment disorder. Eating disorder by history ASSESSMENT: Patient appears to be adjusting to unit, is visible at times, engages selectively with peers, is participating in some unit programming. Patient reports improved sleep with Rozerem and denies need for medication change, states Celexa and Abilify are helping to improve mood and reduce anxiety , continues to utilize hydroxyzine hydroxyzine PRN for intermittent symptoms of anxiety. Patient denies medication side effects at time of assessment. ECHO has been completed, results pending, due to patient recently report of intermittent and brief symptoms of "racing heart," has history of syncopal episodes and abnormal EKG, currently denies cardiac related symptoms and has been instructed to inform nursing immediately if she experiences. Will continue Rozerem in effort to improve sleep. Patient denies current suicidal or homicidal ideation and verbalizes awareness of how to access supportive services on the unit if needed. Clinical consultation has been sought regarding need for CPS report, junior copywriter informed that CPS will not accept report if stable adult present during events which preceded patient psychiatric hospitalization. member services coordinator is communicating with Sylvester Almanza to ensure safe discharge as patient and prepare to [facility] to [place]. Will continue to monitor patient's response to medications and for medication side effects, will evaluate patient' s safety, resolution of suicidal ideation, and discharge readiness. Patient indicates when prepared for discharge she would like to discharge to home with children, reiterates she is not sure she wants to continue marriage with and today states she is not sure if she will PCS to [place] with spouse [facility] with children. Patient states she is agreeable to participating in outpatient psychotherapy and medication management, is requesting discharge coordination assistance in establishing continuity of care including individual therapy, marital counseling, and medication management through [facility] in preparation for PCS to [place] in February. MANAGEMENT PLAN: Continue Celexa 30 mg po q am, Abilify 2.5 mg po q hs, hydroxyzine 50 mg po q 4 hours PRN anxiety, and Rozerem 8 mg po hs PRN insomnia ECHO ordered - completed, results pending Patient remains on I and o Maintain safety precautions Patient to attend groups and participate in unit programming to develop coping strategies Engage patient in discharge planning process and arrange meeting with support system to ensure safe discharge planning when appropriate Patient to follow up with PCM regarding recent EKG results and any other health concerns upon discharge TIME SPENT: 35 minutes Vital Signs Vital Signs Date Time Temp Pulse Resp B/P (MAP) Pulse Ox O2 Delivery O2 Flow Rate FiO2 01/23/17 07:06 98.5 113 16 121/68 (85) 01/22/17 06:32 Room Air Current Medications Current Medications Acetaminophen (Tylenol Tab) 650 mg Q6HP PRN PO HEADACHE or DISCOMFORT Last administered on 01/22/17 03:20; Start 01/16/17 at 11:15; Stop 02/15/17 at 11:14 Al Hydrox/Mg Hydrox/Simethicone (Mylanta) 30 ml Q4HP PRN PO HEARTBURN/ INDIGESTION; Start 01/16/17 at 11:15; Stop 02/15/17 at 11:14 Aripiprazole (AbiLIFY) 2.5 mg QHS PO Last administered on 01/22/17 22:16; Start 01/21/17 at 21:00; Stop 02/20/17 at 20:59 Citalopram Hydrobromide (CeleXA) 10 mg QAM PO Last administered on 01/17/17 08 :17; Start 01/16/17 at 09:00; Stop 01/17/17 at 11:07; Status DC Citalopram Hydrobromide (CeleXA) 20 mg QAM PO Last administered on 01/21/17 08 :45; Start 01/18/17 at 09:00; Stop 01/21/17 at 18:03; Status DC Citalopram Hydrobromide (CeleXA) 30 mg QAM PO Last administered on 01/23/17 08 :39; Start 01/22/17 at 09:00; Stop 02/21/17 at 08:59 Ferrous Sulfate (Ferrous Sulfate) 325 mg DAILY PO Last administered on 08:39; Start 01/20/17 at 09:00; Stop 02/19/17 at 08:59 Home Med (Med Rec Complete!) ASDIRECTED XX ; Start 01/16/17 at 00:15; Stop at 00:15; Status DC Hydroxyzine HCl (Atarax) 50 mg Q4HP PRN PO ANXIETY/AGITATION Last administered on 01/22/17 16:40; Start 01/19/17 at 10:00; Stop 02/18/17 at 09:59 Magnesium Hydroxide (Milk Of Magnesia) 30 ml DAILYPRN PRN PO CONSTIPATION; Start 01/16/17 at 11:15; Stop 02/15/17 at 11:14 Ramelteon (Rozerem) 8 mg QHS PO ; Start 01/22/17 at 21:00; Stop 01/22/17 at 21: 00; Status DC Ramelteon (Rozerem) 8 mg QHS PRN PO Insomnia Last administered on 01/22/17 22: 17; Start 01/22/17 at 21:00; Stop 02/21/17 at 20:59 Trazodone HCl (Desyrel) 50 mg QHSP PRN PO INSOMNIA Last administered on 21:44; Start 01/16/17 at 11:15; Stop 01/17/17 at 11:06; Status DC Trazodone HCl (Desyrel) 50 mg QHSP PRN PO INSOMNIA Last administered on 22:57; Start 01/18/17 at 07:00; Stop 01/21/17 at 18:03; Status DC Trazodone HCl (Desyrel) 100 mg QHSP PRN PO INSOMNIA Last administered on 23:07; Start 01/17/17 at 11:15; Stop 01/18/17 at 07:00; Status DC Allergies Coded Allergies: No Known Allergies (Unverified , 01/15/17) Ailin Maza Jan 23, 2017 09:10
[2017-01-23 18:00] VITALS: BP 126/86
[2017-01-23] MEDS: RAMELTEON 8 MG TAB (ROZEREM) PO PRN (21:58)
[2017-01-24 06:27] VITALS: BP 127/88
[2017-01-24] MEDS: CitaloPRAM (CeleXA) 10 MG TABLET PO SCH (08:32)
[2017-01-24] MEDS: FERROUS SULFATE 325MG TAB PO SCH (08:32)
--- NOTE | 2017-01-24 09:24 | MHIPNPDOC ---
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 Patient denies prior psychiatric inpatient treatment, denied history of prior suicide attempts to screen writer, however, per ER report, stated she has history of 2 prior suicide attempts as teenager by way of strangulation and cutting, endorses history of self-injurious behavior involving cutting between the ages of 14 and 15. Engineer Third Assistant met with patient today to assess treatment progress on inpatient unit. Patient was observed to be visible in lounge, engaging with peers, readily met with screen writer and indicated her symptoms of depression and anxiety continued to improve. Patient states Rozerem was not effective for sleep last night, makes requests for new sleep medication trial. Patient denies symptoms of anxiety, reports current depression level of 2/10, denies suicidal and homicidal ideation, denies auditory and visual hallucinations, denies urge to engage in self-injurious behavior. Patient has not recently utilize hydroxyzine PRn, remains aware that medication is available to her if needed. Patient denies medication side effects, denies experiencing symptoms of "racing heart" or syncope, reiterates she believes "racing heart" symptoms were related to anxiety. Patient denies headache, dizziness, shortness of breath, palpitations, and chest pain. Patient reports continuing improvement to energy level, today reports improvement to concentration and focus, also notes appetite has improved. Patient notes she asked her not to visit last night, has however, have contact with her [id number] who she indicates is supportive if patient elects to pursue separation from and returned [place] with children instead of PCS'ing to [place] with . Patient remains on decided regarding discharge plan but states she is actively contemplating her options. Patient denies symptoms of physical pain and presents with no signs of acute distress at time of interaction. Addendum: Though patient has indicated she is eating regularly, screen writer was informed on 01/21/17 by staff that patient is not eating well. Patient indicates she has a history of "starving myself when I was 14 because I was being bullied ; I got down to 90 pounds." Patient has been placed on I and O for monitoring purposes. VITALS: See below NEW TEST RESULTS: 01/18/17 labs indicate low Hgb, HCT, MCH, anion gap. PA has addressed. MEDICAL/SURGICAL HISTORY: Patient denies history of chronic health conditions, has history of wisdom tooth extraction. Patient denies history of seizure or head injury. Lab results at time of admission indicate low Hgb, HCT, MCH, and elevated TSH. PA has evaluated. 01/17/17 labs indicated elevated RDW and low Hgb, HCT, MCH, TSH within normal limits. PA is aware and monitoring. HCG negative. Patient utilizes Mirena device. Risks of psychotropic medications to unborn child should patient become while taking psychotropic medication were reviewed and patient verbalized understanding. 01/16/17 EKG sinus rhythm with sinus arrhythmia no priors. Patient is asymptomatic, clinical consultation sought and patient has been informed that recommendation is being made for follow-up outpatient. UDS negative 01/18/[address] no intracranial lesion ECHO ordered 01/22/17 post report of "racing heart," has history of abnormal EKG and syncopal episodes. Results: Unable to detect a structural or functional abnormality to account for the patient's syncopal spell. Normal-appearing echocardiogram. CURRENT MEDICATIONS: See below MENTAL STATUS EXAMINATION: General appearance: Patient is a 26-year old female, who is cooperative, no tearfulness today, makes noticeably improved eye contact, and exhibits adequate personal hygiene, dressed in own clothing, ambulates with steady gait, appears stated age Speech: Of normal rate, rhythm, more audible, spontaneous, coherent, monotone Thought processes: Linear, logical, rational Thought content: Rational, logical, no tangentiality or paranoia noted Abstract reasoning and computation: Appears intact Description of associations: Intact Description of abnormal or psychotic thoughts: Denies suicidal and homicidal ideation, denies auditory or visual hallucinations, does not appear to be responding to internal stimuli, does not endorse bizarre or paranoid ideations, and denies preoccupation with violence or obsessions Judgment: Limited, some improvement noted Insight: Limited, some improvement noted Orientation: A and O 3 Recent and remote memory: Appears intact Attention span and concentration: Appears within normal limits Fund of knowledge: Appears adequate Mood: "I'm feeling better today, stronger." Patient appears noticeably less depressed and anxious, no mood lability noted Affect: Constricted, little brightening the patient is noticeably more animated today, more engageable, no tearfulness, affect is congruent with mood DIAGNOSES: Major depressive disorder, recurrent, severe, rule out adjustment disorder. Eating disorder by history ASSESSMENT: Patient continues to adjust to unit, has been more visible, observed to be engaging more with peers, more engageable with staff, is participating in unit programming, has presented with no behavior management challenges. Patient reports improvement to symptoms and looks brighter and more animated today, is more responsive and makes improved eye contact. Patient states she has not needed to use PRN hydroxyzine, indicates she is attempting to utilize newly learned coping mechanisms, states she feels she is also formulating some idea of her desires in terms of marriage and discharge outcomes. Patient indicates Rozerem was ineffective for sleep last night and is requesting new sleep medication, will initiate Remeron trial. Patient denies experiencing syncope or other cardiac related symptoms, echo has been completed with normal results. Patient denies current suicidal or homicidal ideation and verbalizes awareness of how to access supportive services on the unit if needed. Clinical consultation has been sought regarding need for CPS report, screen writer informed that CPS will not accept report if stable adult present during events which preceded patient psychiatric hospitalization. meeting coordinator is communicating with Sylvester Almanza to ensure safe discharge as patient and prepare to PCS to [place], should patient elects to PCS with . If the patient elects to discharge to [place] then nursing coordinator will communicate with family to ensure that outpatient services are arranged for psychotherapy and medication management. Will continue to monitor patient's response to medications and for medication side effects, will evaluate patient's safety, resolution of suicidal ideation, and discharge readiness. Patient indicates when prepared for discharge she thinks she would like to discharge to home with children, reiterates she is not sure she wants to continue marriage with and today states she is not sure if she will PCS to [place] with spouse or return [place] with children to be near family. Patient states she is agreeable to participating in outpatient psychotherapy and medication management. MANAGEMENT PLAN: Discontinue Rozerem. Initiate med trial Remeron 15 mg po q hs. Continue Celexa 30 mg po q am, Abilify 2.5 mg po q hs, and hydroxyzine 50 mg po q 4 hours PRN anxiety/agitation. Patient remains on I and o Maintain safety precautions Patient to attend groups and participate in unit programming to develop coping strategies Engage patient in discharge planning process and arrange meeting with support system to ensure safe discharge planning when appropriate Patient to follow up with PCM regarding recent EKG results and any other health concerns upon discharge TIME SPENT: 25 minutes Vital Signs Vital Signs Date Time Temp Pulse Resp B/P (MAP) Pulse Ox O2 Delivery O2 Flow Rate FiO2 01/24/17 06:27 97.3 84 20 127/88 (101) 01/22/17 06:32 Room Air Current Medications Current Medications Acetaminophen (Tylenol Tab) 650 mg Q6HP PRN PO HEADACHE or DISCOMFORT Last administered on 01/22/17 03:20; Start 01/16/17 at 11:15; Stop 02/15/17 at 11:14 Al Hydrox/Mg Hydrox/Simethicone (Mylanta) 30 ml Q4HP PRN PO HEARTBURN/ INDIGESTION; Start 01/16/17 at 11:15; Stop 02/15/17 at 11:14 Aripiprazole (AbiLIFY) 2.5 mg QHS PO Last administered on 01/23/17 21:58; Start 01/21/17 at 21:00; Stop 02/20/17 at 20:59 Citalopram Hydrobromide (CeleXA) 10 mg QAM PO Last administered on 01/17/17 08 :17; Start 01/16/17 at 09:00; Stop 01/17/17 at 11:07; Status DC Citalopram Hydrobromide (CeleXA) 20 mg QAM PO Last administered on 01/21/17 08 :45; Start 01/18/17 at 09:00; Stop 01/21/17 at 18:03; Status DC Citalopram Hydrobromide (CeleXA) 30 mg QAM PO Last administered on 01/24/17 08 :32; Start 01/22/17 at 09:00; Stop 02/21/17 at 08:59 Ferrous Sulfate (Ferrous Sulfate) 325 mg DAILY PO Last administered on 08:32; Start 01/20/17 at 09:00; Stop 02/19/17 at 08:59 Home Med (Med Rec Complete!) ASDIRECTED XX ; Start 01/16/17 at 00:15; Stop at 00:15; Status DC Hydroxyzine HCl (Atarax) 50 mg Q4HP PRN PO ANXIETY/AGITATION Last administered on 01/22/17 16:40; Start 01/19/17 at 10:00; Stop 02/18/17 at 09:59 Magnesium Hydroxide (Milk Of Magnesia) 30 ml DAILYPRN PRN PO CONSTIPATION; Start 01/16/17 at 11:15; Stop 02/15/17 at 11:14 Ramelteon (Rozerem) 8 mg QHS PO ; Start 01/22/17 at 21:00; Stop 01/22/17 at 21: 00; Status DC Ramelteon (Rozerem) 8 mg QHS PRN PO Insomnia Last administered on 01/23/17 21: 58; Start 01/22/17 at 21:00; Stop 02/21/17 at 20:59 Trazodone HCl (Desyrel) 50 mg QHSP PRN PO INSOMNIA Last administered on 21:44; Start 01/16/17 at 11:15; Stop 01/17/17 at 11:06; Status DC Trazodone HCl (Desyrel) 50 mg QHSP PRN PO INSOMNIA Last administered on 22:57; Start 01/18/17 at 07:00; Stop 01/21/17 at 18:03; Status DC Trazodone HCl (Desyrel) 100 mg QHSP PRN PO INSOMNIA Last administered on 23:07; Start 01/17/17 at 11:15; Stop 01/18/17 at 07:00; Status DC Allergies Coded Allergies: No Known Allergies (Unverified , 01/15/17) Ailin Maza Jan 24, 2017 09:24
[2017-01-24 18:00] VITALS: BP 130/80
[2017-01-24] MEDS: hydrOXYzine 50 MG TAB PO PRN (20:06)
[2017-01-24] MEDS: MIRTAZAPINE 15 MG TAB PO SCH (23:10)
[2017-01-25 07:00] VITALS: BP 121/82
[2017-01-25] MEDS: FERROUS SULFATE 325MG TAB PO SCH (09:08)
[2017-01-25] MEDS: CitaloPRAM (CeleXA) 10 MG TABLET PO SCH (09:08)
[2017-01-25 18:00] VITALS: BP 130/76
[2017-01-25] MEDS: MIRTAZAPINE 15 MG TAB PO SCH (22:47)
[2017-01-26] VITALS (7 sets, daily range): BP systolic 121–136; BP diastolic 75–87
[2017-01-26] MEDS: SENOKOT S TAB PO SCH ×3 (01:00→21:33)
[2017-01-26] MEDS: MIRALAX *UNIT DOSE* 17GM PACKET PO SCH ×2 (01:00→08:24)
[2017-01-26 02:16] LABS: BASO % 0.3 % (0.0-1.0); EOS # 0.1 K/mm3 (0.0-0.50); EOS % 1.3 % (0.0-3.0); LARGE UNSTAINED CELL # 0.1 K/mm3 (0.0-0.4); LARGE UNSTAINED CELL % 1.3 % (0.0-4.0); LYMPH # 1.3 K/mm3 (1.5-6.5); LYMPH % 14.9 % (24.0-44.0); MEAN CORPUSCULAR HEMOGLOBIN 26.2 pg (27.0-33.0); MEAN CORPUSCULAR HGB CONC 32.4 g/dl (32.0-36.5); MEAN CORPUSCULAR VOLUME 80.8 fl (80.0-96.0); MONO # 0.3 K/mm3 (0.0-0.8); MONO % 3.5 % (0.0-5.0); NEUTROPHILS # 6.4 K/mm3 (1.8-7.7); NEUTROPHILS % 78.7 % (36.0-66.0); PLATELET COUNT, AUTOMATED 221 k/mm3 (150-450); WHITE BLOOD COUNT 8.1 K/mm3 (4.0-10.0)
[2017-01-26 02:30] LABS: ANION GAP 7 MEQ/L (8-16); BLOOD UREA NITROGEN 20 MG/DL (7-18); CALCIUM LEVEL 8.8 MG/DL (8.5-10.1); CARBON DIOXIDE LEVEL 26 MEQ/L (21-32); CHLORIDE LEVEL 103 MEQ/L (98-107); CREATININE FOR GFR 0.63 MG/DL (0.55-1.02); GLOMERULAR FILTRATION RATE > 60.0 (>60); GLUCOSE, FASTING 100 MG/DL (70-105); MAGNESIUM LEVEL 1.9 MG/DL (1.8-2.4); POTASSIUM SERUM 4.1 MEQ/L (3.5-5.1); SODIUM LEVEL 136 MEQ/L (136-145)
--- NOTE | 2017-01-26 03:49 | IPNPDOC ---
Text Note Date of Service The patient was seen on 01/26/17. NOTE Subjective: The patient was seen earlier this morning for an episode of near syncope. Apparently she has had poor oral intake throughout the day, and she was started on a new sleeping medication, and then she was walking on the hallway when she felt woozy, she did not fall, nor did she lose consciousness, but she did he is herself to the ground and have to take a break for a few seconds. Then she had a be held back to her room. Orthostatic vital signs were checked twice, and were negative both times, and she never exhibited any tachycardia. She does have a soft blood pressure, but I suspect that this is not too far below her normal baseline for her age, body habitus, and the fact that it is the middle of the night and she was sleeping just prior. He was also reported to me that she has not had a bowel movement in a few days, therefore she may not be eating a full meals either because of her constipation. Objective: She was sleeping when I entered the room, orthostatic vital signs were once again performed, she was unable to tolerate standing, therefore she is herself back into the bed and laid down, but she did not lose consciousness, she didn't remember her name, age, and where she was. Pupils are equally reactive to light bilaterally, buccal mucosa is pink and moist with no lesions in the oropharynx, heart is regular rate and rhythm with no murmurs rubs or gallops, specifically she did not have tachycardia. Pulses are equal bilaterally. Assessment: Presyncopal episode likely secondary to hypovolemia and poor oral intake. This was also likely exacerbated by her sleeping medication, making her more groggy and less able to compensate for the hypovolemia when standing or walking the halls during the evening. She also apparently has constipation, which is likely contributing to her poor oral intake. Plan: Labs were drawn and were largely unremarkable, except that she does have a prerenal azotemia with an elevated BUN to creatinine ratio indicating that she is likely dehydrated. Because she does not show indication of organ damage, I feel that she would be safe to stay in the [facility]. Her mirtazapine has been stopped, we will also ordered MiraLAX and Senokot to help with constipation. Recommend increasing her oral intake. I would encourage intake of fluids, but also recommend that she eat full meals as well. VS,Fishbone, I+O VS, Fishbone, I+O Laboratory Tests 01/26/17 02:02 Red Blood Count 4.48, Mean Corpuscular Volume 80.8, Mean Corpuscular Hemoglobin 26.2 L, Mean Corpuscular Hemoglobin Concent 32.4, Red Cell Distribution Width 15.0 H, Neutrophils (%) (Auto) 78.7 H, Lymphocytes (%) (Auto) 14.9 L, Monocytes (%) (Auto) 3.5, Eosinophils (%) (Auto) 1.3, Basophils (%) (Auto) 0.3, Neutrophils # (Auto) 6.4, Lymphocytes # (Auto) 1.3 L, Monocytes # (Auto) 0.3, Eosinophils # (Auto) 0.1, Basophils # (Auto) 0.0, Calcium Level 8.8 Vital Signs Date Time Temp Pulse Resp B/P (MAP) Pulse Ox O2 Delivery O2 Flow Rate FiO2 01/25/17 18:00 98.9 84 16 130/76 (94) 01/22/17 06:32 Room Air GME ATTESTATION GME ATTESTATION My preceptor for this patient encounter was physically present in the building during the encounter and was fully available. As needed, all aspects of the patient interview, examination, medical decision making process, and medical care plan development were reviewed and approved by the preceptor. Preceptor is aware and concurs with the plan as stated in the body of this note and will attest to such by his/her cosignature. ATTENDING NOTE I have both independently examined this patient as well as reviewed the note. I have discussed in detail with the resident the findings and plan of treatment as documented in the residents note. I will continue to follow the patient and offer further guidance to the patients care as necessary during this hospital stay. SIRI Pearson MD, DO Jan 26, 2017 03:49 BHAVIN RIVERA MD Jan 26, 2017 18:35
[2017-01-26] MEDS: ASCORBIC ACID 250 MG TAB PO SCH ×2 (08:24→21:33)
[2017-01-26] MEDS: CitaloPRAM (CeleXA) 10 MG TABLET PO SCH (08:24)
[2017-01-26] MEDS: FERROUS SULFATE 325MG TAB PO SCH (08:24)
[2017-01-26] MEDS: hydrOXYzine 50 MG TAB PO PRN (22:58)
[2017-01-27 06:57] LABS: MEAN CORPUSCULAR HEMOGLOBIN 26.7 pg (27.0-33.0); MEAN CORPUSCULAR HGB CONC 32.8 g/dl (32.0-36.5); MEAN CORPUSCULAR VOLUME 81.4 fl (80.0-96.0); RED CELL DISTRIBUTION WIDTH 15.1 % (11.5-14.5); WHITE BLOOD COUNT 4.6 K/mm3 (4.0-10.0)
[2017-01-27 07:04] VITALS: BP 120/68
[2017-01-27 07:11] LABS: ANION GAP 6 MEQ/L (8-16); BLOOD UREA NITROGEN 16 MG/DL (7-18); CALCIUM LEVEL 9.6 MG/DL (8.5-10.1); CARBON DIOXIDE LEVEL 30 MEQ/L (21-32); CHLORIDE LEVEL 105 MEQ/L (98-107); CREATININE FOR GFR 0.71 MG/DL (0.55-1.02); GLOMERULAR FILTRATION RATE > 60.0 (>60); GLUCOSE, FASTING 82 MG/DL (70-105); MAGNESIUM LEVEL 2.1 MG/DL (1.8-2.4); POTASSIUM SERUM 3.6 MEQ/L (3.5-5.1); SODIUM LEVEL 141 MEQ/L (136-145)
[2017-01-27] MEDS: MIRALAX *UNIT DOSE* 17GM PACKET PO SCH (08:42)
[2017-01-27] MEDS: CitaloPRAM (CeleXA) 10 MG TABLET PO SCH (08:44)
[2017-01-27] MEDS: ASCORBIC ACID 250 MG TAB PO SCH ×2 (08:44→21:48)
[2017-01-27] MEDS: SENOKOT S TAB PO SCH ×2 (08:44→21:00)
[2017-01-27] MEDS: FERROUS SULFATE 325MG TAB PO SCH (08:44)
--- NOTE | 2017-01-27 09:38 | MHIPNPDOC ---
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 Patient indicates "I had been thinking about suicide for a while and I just wanted to stop feeling like this." Patient states she had a "bad day yesterday, my marriage is struggling, we are going to be PCS'ing in February, and I just found out yesterday that my is going to be deployed for 9 months in August." Patient reportedly went to [employer] to crab picker dinner for family yesterday evening and then came home and overdosed on Ambien, was reportedly talking to her mother on the telephone when noticed change in mental status and patient admitted to overdose. Patient denies prior psychiatric inpatient treatment, denied history of prior suicide attempts to automatic typewriter inspector, however, per ER report, stated she has history of 2 prior suicide attempts as teenager by way of strangulation and cutting, endorses history of self-injurious behavior involving cutting between the ages of 14 and 15. Paratransit Driver met with patient today to assess treatment progress on inpatient unit. Patient was observed to be up out of bed today, actively engaging in unit programming and with peers, reported improvement to symptoms of anxiety and depression, denied suicidal and homicidal ideation, denied auditory and visual hallucinations, denied urge to engage in self-injurious behavior. Patient informed automatic typewriter inspector, "I'm feeling a lot better today, I can really feel the difference, I told my I want a separation, I'm making huge progress, huge steps and I feel better." Patient has not needed to utilize hydroxyzine PRN today, indicates improved sleep with Remeron, indicates medication regimen is effective and denies side effects. However, patient experienced near syncopal event last night, indicates she did not experience near syncopal symptoms on other nights she utilize Remeron, reminds automatic typewriter inspector she has history of syncopal episodes, states she does not feel syncope was related to Remeron, makes request for medication to be restarted as sleep aid. Patient states she has long-standing problems with sleep at home, is agreeable to trialing Remeron at a lower dose. Patient agrees to notify staff immediately if she begins to experience symptoms of lightheadedness or dizziness, was provided with up-to- date on results of consultation completed by hospitalist, has been encouraged to keep intake up and to make sure she is drinking fluids. Patient denies symptoms of chest pain, dizziness, headache, shortness of breath, and palpitations. Patient reports improvement to sleep, energy level and concentration and focus, states appetite has also improved. Patient denies symptoms of physical pain and presents with no signs of acute distress at time of interaction. VITALS: See below NEW TEST RESULTS: 01/27/17 labs indicated low Hgb and MCH, high RDW, PA is addressing. MEDICAL/SURGICAL HISTORY: Patient denies history of chronic health conditions, has history of wisdom tooth extraction. Patient denies history of seizure or head injury. Lab results at time of admission indicate low Hgb, HCT, MCH, and elevated TSH. PA has evaluated. 01/17/17 labs indicated elevated RDW and low Hgb, HCT, MCH, TSH within normal limits. PA is aware and monitoring. HCG negative. Patient utilizes Mirena device. Risks of psychotropic medications to unborn child should patient become while taking psychotropic medication were reviewed and patient verbalized understanding. 01/16/17 EKG sinus rhythm with sinus arrhythmia no priors. Patient is asymptomatic, clinical consultation sought and patient has been informed that recommendation is being made for follow-up outpatient. UDS negative 01/18/17 labs indicate low Hgb, HCT, MCH, anion gap. 01/18/[address] no intracranial lesion ECHO ordered 01/22/17 post report of "racing heart," has history of abnormal EKG and syncopal episodes. Results: Unable to detect a structural or functional abnormality to account for the patient's syncopal spell. Normal-appearing echocardiogram. 01/26/17 consultation regarding presyncopal episode - likely secondary to hypovolemia and poor oral intake CURRENT MEDICATIONS: See below MENTAL STATUS EXAMINATION: General appearance: Patient is a 26-year old female, who is pleasant and cooperative, easily engaged today, noticeably brighter, makes good eye contact, exhibits good personal hygiene, dressed in own clothing, ambulates with steady gait, appears stated age Speech: Of normal rate, rhythm, more audible, spontaneous, coherent Thought processes: Linear, logical, rational Thought content: Rational, logical, no tangentiality or paranoia noted Abstract reasoning and computation: Appears intact Description of associations: Intact Description of abnormal or psychotic thoughts: Denies suicidal and homicidal ideation, denies auditory or visual hallucinations, does not appear to be responding to internal stimuli, does not endorse bizarre or paranoid ideations, and denies preoccupation with violence or obsessions Judgment: Fair, continues to improve Insight: Adequate, has improved during treatment Orientation: A and O 3 Recent and remote memory: Appears intact Attention span and concentration: Within normal limits Fund of knowledge: Adequate Mood: "I'm feeling much better today, stronger." Patient appears noticeably brighter today, reports improvement anxiety and depression, no mood lability noted Affect: Remains constricted but brightens at times, more animated today, no tearfulness, affect is congruent with mood DIAGNOSES: Major depressive disorder, recurrent, severe, rule out adjustment disorder. Eating disorder by history ASSESSMENT: Patient is adjusting to unit, is visible, engaging selectively with staff and peers, is participating in unit activities, is cooperative with staff , and has presented with no behavior management challenges. Patient reports improvement to symptoms and looks brighter and more animated today, is more responsive and makes good eye contact. Patient states she has not needed to use PRN hydroxyzine, indicates she is attempting to utilize newly learned coping mechanisms, states she feels she is also formulating some idea of her desires in terms of marriage and discharge outcomes. Patient is agreeable to trialing Remeron at lower dose in effort to continue to provide patient with sleep aid and an effort to avoid any possible contributory affect to presyncopal episodes. Patient denies experiencing syncope or other cardiac related symptoms , echo has been completed with normal results. Patient denies current suicidal or homicidal ideation and verbalizes awareness of how to access supportive services on the unit if needed. Clinical consultation has been sought regarding need for CPS report, automatic typewriter inspector informed that CPS will not accept report if stable adult present during events which preceded patient psychiatric hospitalization. coordinator integrated marketing has communicated with Sylvester Almanza to ensure safe discharge if patient elects to PCS to [place] with . If the patient elects to discharge to [place] then information coordinator will communicate with family to ensure that outpatient services are arranged for psychotherapy and medication management. Will continue to monitor patient's response to medications and for medication side effects, will evaluate patient's safety, resolution of suicidal ideation, and discharge readiness. Patient indicates when prepared for discharge she thinks she would like to discharge to home with children, states today she feels she might want to pursue separation from to evaluate whether she wants to remain in the marriage, remains agreeable to participating in outpatient psychotherapy and medication management. MANAGEMENT PLAN: Change Remeron to 7.5 mg po q hs. Continue Celexa 30 mg po q am , Abilify 2.5 mg po q hs, and hydroxyzine 50 mg po q 4 hours PRN anxiety/ agitation. Patient remains on I and o Maintain safety precautions Patient to attend groups and participate in unit programming to develop coping strategies Engage patient in discharge planning process and arrange meeting with support system to ensure safe discharge planning when appropriate Patient to follow up with PCM regarding recent EKG results, presyncopal episodes , and any other health concerns upon discharge TIME SPENT: 35 minutes Vital Signs Vital Signs Date Time Temp Pulse Resp B/P (MAP) Pulse Ox O2 Delivery O2 Flow Rate FiO2 01/27/17 07:04 97.1 74 18 120/68 (85) 01/22/17 06:32 Room Air Laboratory Data 24H Labs Laboratory Tests 2 01/27/17 06:38: Anion Gap 6L, Glomerular Filtration Rate > 60.0, Blood Urea Nitrogen 16, Creatinine 0.71, Sodium Level 141, Potassium Level 3.6, Chloride Level 105, Carbon Dioxide Level 30, Calcium Level 9.6, Magnesium Level 2.1 CBC/BMP Laboratory Tests 01/27/17 06:38 Red Blood Count 4.45, Mean Corpuscular Volume 81.4, Mean Corpuscular Hemoglobin 26.7 L, Mean Corpuscular Hemoglobin Concent 32.8, Red Cell Distribution Width 15.1 H, Calcium Level 9.6 Current Medications Current Medications Acetaminophen (Tylenol Tab) 650 mg Q6HP PRN PO HEADACHE or DISCOMFORT Last administered on 01/22/17 03:20; Start 01/16/17 at 11:15; Stop 02/15/17 at 11:14 Al Hydrox/Mg Hydrox/Simethicone (Mylanta) 30 ml Q4HP PRN PO HEARTBURN/ INDIGESTION; Start 01/16/17 at 11:15; Stop 02/15/17 at 11:14 Aripiprazole (AbiLIFY) 2.5 mg QHS PO Last administered on 01/26/17 21:33; Start 01/21/17 at 21:00; Stop 02/20/17 at 20:59 Ascorbic Acid (Vitamin C) 250 mg BID PO Last administered on 01/27/17 08:44; Start 01/26/17 at 09:00; Stop 02/25/17 at 08:59 Citalopram Hydrobromide (CeleXA) 10 mg QAM PO Last administered on 01/17/17 08 :17; Start 01/16/17 at 09:00; Stop 01/17/17 at 11:07; Status DC Citalopram Hydrobromide (CeleXA) 20 mg QAM PO Last administered on 01/21/17 08 :45; Start 01/18/17 at 09:00; Stop 01/21/17 at 18:03; Status DC Citalopram Hydrobromide (CeleXA) 30 mg QAM PO Last administered on 01/27/17 08 :44; Start 01/22/17 at 09:00; Stop 02/21/17 at 08:59 Ferrous Sulfate (Ferrous Sulfate) 325 mg DAILY PO Last administered on 08:44; Start 01/20/17 at 09:00; Stop 02/19/17 at 08:59 Home Med (Med Rec Complete!) ASDIRECTED XX ; Start 01/16/17 at 00:15; Stop at 00:15; Status DC Hydroxyzine HCl (Atarax) 50 mg Q4HP PRN PO ANXIETY/AGITATION Last administered on 01/26/17 22:58; Start 01/19/17 at 10:00; Stop 02/18/17 at 09:59 Magnesium Hydroxide (Milk Of Magnesia) 30 ml DAILYPRN PRN PO CONSTIPATION; Start 01/16/17 at 11:15; Stop 02/15/17 at 11:14 Mirtazapine (Remeron) 15 mg QHS PO Last administered on 01/25/17 22:47; Start 01/24/17 at 21:00; Stop 01/26/17 at 00:57; Status DC Polyethylene Glycol (Miralax) 1 pkt DAILY PO Last administered on 01/26/17 08: 24; Start 01/26/17 at 01:00; Stop 02/25/17 at 00:59 Ramelteon (Rozerem) 8 mg QHS PO ; Start 01/22/17 at 21:00; Stop 01/22/17 at 21: 00; Status DC Ramelteon (Rozerem) 8 mg QHS PRN PO Insomnia Last administered on 01/23/17 21: 58; Start 01/22/17 at 21:00; Stop 01/24/17 at 19:23; Status DC Senna/Docusate Sodium (Senokot S) 2 tab BID PO Last administered on 01/27/17 08:44; Start 01/26/17 at 01:00; Stop 02/25/17 at 00:59 Trazodone HCl (Desyrel) 50 mg QHSP PRN PO INSOMNIA Last administered on 21:44; Start 01/16/17 at 11:15; Stop 01/17/17 at 11:06; Status DC Trazodone HCl (Desyrel) 50 mg QHSP PRN PO INSOMNIA Last administered on 22:57; Start 01/18/17 at 07:00; Stop 01/21/17 at 18:03; Status DC Trazodone HCl (Desyrel) 100 mg QHSP PRN PO INSOMNIA Last administered on 23:07; Start 01/17/17 at 11:15; Stop 01/18/17 at 07:00; Status DC Allergies Coded Allergies: No Known Allergies (Unverified , 01/15/17) Ailin Maza Jan 27, 2017 09:38
[2017-01-27 15:07] VITALS: BP_SYST 108; BP_SYST 124; BP_SYST 125; BP_DIAS 65; BP_DIAS 83; BP_DIAS 84
[2017-01-27] MEDS: hydrOXYzine 50 MG TAB PO PRN (17:26)
[2017-01-27] MEDS: MIRTAZAPINE 7.5MG PER 1/2 TABLET PO SCH (22:57)
[2017-01-28 06:25] VITALS: BP_SYST 110; BP_SYST 133; BP_SYST 135; BP_DIAS 67; BP_DIAS 74; BP_DIAS 80
[2017-01-28 07:26] LABS: MEAN CORPUSCULAR HEMOGLOBIN 27.3 pg (27.0-33.0); MEAN CORPUSCULAR HGB CONC 32.8 g/dl (32.0-36.5); MEAN CORPUSCULAR VOLUME 83.3 fl (80.0-96.0); RED CELL DISTRIBUTION WIDTH 15.5 % (11.5-14.5); WHITE BLOOD COUNT 5.2 K/mm3 (4.0-10.0)
[2017-01-28 07:46] LABS: ANION GAP 7 MEQ/L (8-16); BLOOD UREA NITROGEN 16 MG/DL (7-18); CALCIUM LEVEL 9.2 MG/DL (8.5-10.1); CARBON DIOXIDE LEVEL 29 MEQ/L (21-32); CHLORIDE LEVEL 101 MEQ/L (98-107); CREATININE FOR GFR 0.72 MG/DL (0.55-1.02); GLOMERULAR FILTRATION RATE > 60.0 (>60); GLUCOSE, FASTING 84 MG/DL (70-105); MAGNESIUM LEVEL 2.3 MG/DL (1.8-2.4); POTASSIUM SERUM 3.9 MEQ/L (3.5-5.1); SODIUM LEVEL 137 MEQ/L (136-145)
[2017-01-28] MEDS: CitaloPRAM (CeleXA) 10 MG TABLET PO SCH (08:26)
[2017-01-28] MEDS: SENOKOT S TAB PO SCH ×2 (08:26→21:23)
[2017-01-28] MEDS: FERROUS SULFATE 325MG TAB PO SCH (08:26)
[2017-01-28] MEDS: ASCORBIC ACID 250 MG TAB PO SCH ×2 (08:26→21:22)
[2017-01-28] MEDS: MIRALAX *UNIT DOSE* 17GM PACKET PO SCH (08:27)
--- NOTE | 2017-01-28 09:22 | MHIPNPDOC ---
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 Patient indicates "I had been thinking about suicide for a while and I just wanted to stop feeling like this." Patient states she had a "bad day yesterday, my marriage is struggling, we are going to be PCS'ing in February, and I just found out yesterday that my is going to be deployed for 9 months in August." Patient reportedly went to [employer] to brain picker dinner for family yesterday evening and then came home and overdosed on Ambien, was reportedly talking to her mother on the telephone when noticed change in mental status and patient admitted to overdose. Patient denies prior psychiatric inpatient treatment, denied history of prior suicide attempts to poem writer, however, per ER report, stated she has history of 2 prior suicide attempts as teenager by way of strangulation and cutting, endorses history of self-injurious behavior involving cutting between the ages of 14 and 15. [employer] met with patient today to assess treatment progress on inpatient unit. Patient was observed to be up out of bed today, actively engaging in unit programming and with peers, reported improvement to symptoms of anxiety and depression, denied suicidal and homicidal ideation, denied auditory and visual hallucinations, denied urge to engage in self-injurious behavior. Patient informed poem writer, "I'm better, definitely better and I feel ready to go home tomorrow and start moving on with the separation and working through things with my ." Patient has not needed to utilize hydroxyzine PRN today, indicates improved sleep with Remeron, denies side effects, including new episodes of syncope or associated symptoms. Patient reiterates she has long- standing problems with sleep at home, feels reduced dose of Remeron is effective. Patient agrees to notify staff immediately if she begins to experience symptoms of lightheadedness or dizziness, states she has been making conscious effort to maintain increased intake and to ensure that she is drinking fluids. Patient denies symptoms of chest pain, dizziness, headache, shortness of breath, and palpitations. Patient reports improvement to sleep, energy level and concentration and focus, states appetite has also improved. Patient denies symptoms of physical pain and presents with no signs of acute distress at time of interaction. VITALS: See below MEDICAL/SURGICAL HISTORY: Patient denies history of chronic health conditions, has history of wisdom tooth extraction. Patient denies history of seizure or head injury. Lab results at time of admission indicate low Hgb, HCT, MCH, and elevated TSH. PA has evaluated. 01/17/17 labs indicated elevated RDW and low Hgb, HCT, MCH, TSH within normal limits. PA is aware and monitoring. HCG negative. Patient utilizes Mirena device. Risks of psychotropic medications to unborn child should patient become while taking psychotropic medication were reviewed and patient verbalized understanding. 01/16/17 EKG sinus rhythm with sinus arrhythmia no priors. Patient is asymptomatic, clinical consultation sought and patient has been informed that recommendation is being made for follow-up outpatient. UDS negative 01/18/17 labs indicate low Hgb, HCT, MCH, anion gap. 01/18/[address] no intracranial lesion ECHO ordered 01/22/17 post report of "racing heart," has history of abnormal EKG and syncopal episodes. Results: Unable to detect a structural or functional abnormality to account for the patient's syncopal spell. Normal-appearing echocardiogram. 01/26/17 consultation regarding presyncopal episode - likely secondary to hypovolemia and poor oral intake 01/27/17 labs indicated low Hgb and MCH, high RDW, PA as address CURRENT MEDICATIONS: See below MENTAL STATUS EXAMINATION: General appearance: Patient is a 26-year old female, who is pleasant and cooperative, easily engaged today, noticeably brighter, makes good eye contact, exhibits good personal hygiene, dressed in own clothing, ambulates with steady gait, appears stated age Speech: Of normal rate, rhythm, more audible, spontaneous, coherent Thought processes: Linear, logical, rational Thought content: Rational, logical, no tangentiality or paranoia noted Abstract reasoning and computation: Appears intact Description of associations: Intact Description of abnormal or psychotic thoughts: Denies suicidal and homicidal ideation, denies auditory or visual hallucinations, does not appear to be responding to internal stimuli, does not endorse bizarre or paranoid ideations, and denies preoccupation with violence or obsessions Judgment: Adequate, has improved during treatment Insight: Adequate, has improved during treatment Orientation: A and O 3 Recent and remote memory: Appears intact Attention span and concentration: Within normal limits Fund of knowledge: Adequate Mood: "I'm feeling much better today and my sleep was good last night too." Patient appears noticeably brighter today, denies symptoms of anxiety and depression, no mood lability noted Affect: Mild constriction, brightens appropriately, congruent with mood DIAGNOSES: Major depressive disorder, recurrent, severe, rule out adjustment disorder. Eating disorder by history ASSESSMENT: Patient has adjusted to unit, has been visible, participating in unit activity, engaging selectively with staff and peers, has been cooperative with staff, and has presented with no behavior management challenges. Patient reports improvement to symptoms and looks brighter and more animated today, is more responsive and makes good eye contact. Patient states she has not needed to use PRN hydroxyzine today, continues to attempt to utilize coping mechanisms, notes she has decided she wants to pursue separation from and has had conversation with him on the subject. Patient indicates she feels she has family support. Patient indicates current medication regimen is effective and she denies medication side effects, including syncope or other cardiac related symptoms, echo has been completed with normal results. Patient denies current suicidal or homicidal ideation and verbalizes awareness of how to access supportive services on the unit if needed. Clinical consultation has been sought regarding need for CPS report, poem writer informed that CPS will not accept report if stable adult present during events which preceded patient psychiatric hospitalization. Will continue to monitor patient's response to medications and for medication side effects and will begin to prepare patient for discharge tomorrow. Family meeting has been scheduled and patient states she has decided to discharge to home with and children temporarily until PCS is to [place] at which time patient plans to separate from and returned [place] with children to live near support system. Patient is agreeable to following up with outpatient psychotherapy and medication management until she elects to leave the [facility]. MANAGEMENT PLAN: Continue Remeron 7.5 mg po q hs, Celexa 30 mg po q am, Abilify 2.5 mg po q hs, and hydroxyzine 50 mg po q 4 hours PRN anxiety/agitation. Discontinue I and O Maintain safety precautions Patient to attend groups and participate in unit programming to develop coping strategies Engage patient in discharge planning process and arrange meeting with support system to ensure safe discharge planning when appropriate Patient to follow up with PCM regarding recent EKG results, presyncopal episodes , and any other health concerns upon discharge TIME SPENT: 35 minutes Vital Signs Vital Signs Date Time Temp Pulse Resp B/P (MAP) Pulse Ox O2 Delivery O2 Flow Rate FiO2 01/28/17 06:25 18 110/67 (81) 79 133/74 (93) 79 135/80 (98) 01/27/17 15:05 99.0 16 01/22/17 06:32 Room Air Laboratory Data 24H Labs Laboratory Tests 2 01/28/17 06:25: Anion Gap 7L, Glomerular Filtration Rate > 60.0, Blood Urea Nitrogen 16, Creatinine 0.72, Sodium Level 137, Potassium Level 3.9, Chloride Level 101, Carbon Dioxide Level 29, Calcium Level 9.2, Magnesium Level 2.3 CBC/BMP Laboratory Tests 01/28/17 06:25 Red Blood Count 4.46, Mean Corpuscular Volume 83.3, Mean Corpuscular Hemoglobin 27.3, Mean Corpuscular Hemoglobin Concent 32.8, Red Cell Distribution Width 15.5 H, Calcium Level 9.2 Current Medications Current Medications Acetaminophen (Tylenol Tab) 650 mg Q6HP PRN PO HEADACHE or DISCOMFORT Last administered on 01/22/17 03:20; Start 01/16/17 at 11:15; Stop 02/15/17 at 11:14 Al Hydrox/Mg Hydrox/Simethicone (Mylanta) 30 ml Q4HP PRN PO HEARTBURN/ INDIGESTION; Start 01/16/17 at 11:15; Stop 02/15/17 at 11:14 Aripiprazole (AbiLIFY) 2.5 mg QHS PO Last administered on 01/27/17 21:48; Start 01/21/17 at 21:00; Stop 02/20/17 at 20:59 Ascorbic Acid (Vitamin C) 250 mg BID PO Last administered on 01/28/17 08:26; Start 01/26/17 at 09:00; Stop 02/25/17 at 08:59 Citalopram Hydrobromide (CeleXA) 10 mg QAM PO Last administered on 01/17/17 08 :17; Start 01/16/17 at 09:00; Stop 01/17/17 at 11:07; Status DC Citalopram Hydrobromide (CeleXA) 20 mg QAM PO Last administered on 01/21/17 08 :45; Start 01/18/17 at 09:00; Stop 01/21/17 at 18:03; Status DC Citalopram Hydrobromide (CeleXA) 30 mg QAM PO Last administered on 01/28/17 08 :26; Start 01/22/17 at 09:00; Stop 02/21/17 at 08:59 Ferrous Sulfate (Ferrous Sulfate) 325 mg DAILY PO Last administered on 08:26; Start 01/20/17 at 09:00; Stop 02/19/17 at 08:59 Home Med (Med Rec Complete!) ASDIRECTED XX ; Start 01/16/17 at 00:15; Stop at 00:15; Status DC Hydroxyzine HCl (Atarax) 50 mg Q4HP PRN PO ANXIETY/AGITATION Last administered on 01/27/17 17:26; Start 01/19/17 at 10:00; Stop 02/18/17 at 09:59 Magnesium Hydroxide (Milk Of Magnesia) 30 ml DAILYPRN PRN PO CONSTIPATION; Start 01/16/17 at 11:15; Stop 02/15/17 at 11:14 Mirtazapine (Remeron) 7.5 mg QHS PO Last administered on 01/27/17 22:57; Start 01/27/17 at 21:00; Stop 02/26/17 at 20:59 Mirtazapine (Remeron) 15 mg QHS PO Last administered on 01/25/17 22:47; Start 01/24/17 at 21:00; Stop 01/26/17 at 00:57; Status DC Polyethylene Glycol (Miralax) 1 pkt DAILY PO Last administered on 01/26/17 08: 24; Start 01/26/17 at 01:00; Stop 02/25/17 at 00:59 Ramelteon (Rozerem) 8 mg QHS PO ; Start 01/22/17 at 21:00; Stop 01/22/17 at 21: 00; Status DC Ramelteon (Rozerem) 8 mg QHS PRN PO Insomnia Last administered on 01/23/17 21: 58; Start 01/22/17 at 21:00; Stop 01/24/17 at 19:23; Status DC Senna/Docusate Sodium (Senokot S) 2 tab BID PO Last administered on 01/28/17 08:26; Start 01/26/17 at 01:00; Stop 02/25/17 at 00:59 Trazodone HCl (Desyrel) 50 mg QHSP PRN PO INSOMNIA Last administered on 21:44; Start 01/16/17 at 11:15; Stop 01/17/17 at 11:06; Status DC Trazodone HCl (Desyrel) 50 mg QHSP PRN PO INSOMNIA Last administered on 22:57; Start 01/18/17 at 07:00; Stop 01/21/17 at 18:03; Status DC Trazodone HCl (Desyrel) 100 mg QHSP PRN PO INSOMNIA Last administered on 23:07; Start 01/17/17 at 11:15; Stop 01/18/17 at 07:00; Status DC Allergies Coded Allergies: No Known Allergies (Unverified , 01/15/17) Ailin Maza Jan 28, 2017 09:22
[2017-01-28 14:57] VITALS: BP_SYST 129; BP_DIAS 79; BP_DIAS 90
[2017-01-28] MEDS: MIRTAZAPINE 7.5MG PER 1/2 TABLET PO SCH (23:00)
[2017-01-29 06:35] VITALS: BP 120/75
[2017-01-29 07:35] LABS: ANION GAP 7 MEQ/L (8-16); BLOOD UREA NITROGEN 16 MG/DL (7-18); CALCIUM LEVEL 9.4 MG/DL (8.5-10.1); CARBON DIOXIDE LEVEL 29 MEQ/L (21-32); CHLORIDE LEVEL 101 MEQ/L (98-107); CREATININE FOR GFR 0.71 MG/DL (0.55-1.02); GLOMERULAR FILTRATION RATE > 60.0 (>60); GLUCOSE, FASTING 86 MG/DL (70-105); MAGNESIUM LEVEL 2.2 MG/DL (1.8-2.4); POTASSIUM SERUM 4.1 MEQ/L (3.5-5.1); SODIUM LEVEL 137 MEQ/L (136-145)
[2017-01-29] MEDS: ASCORBIC ACID 250 MG TAB PO SCH (08:34)
[2017-01-29] MEDS: SENOKOT S TAB PO SCH (08:34)
[2017-01-29] MEDS: CitaloPRAM (CeleXA) 10 MG TABLET PO SCH (08:34)
[2017-01-29] MEDS: FERROUS SULFATE 325MG TAB PO SCH (08:34)
[2017-01-29] MEDS: hydrOXYzine 50 MG TAB PO PRN (08:34)
[2017-01-29] MEDS: MIRALAX *UNIT DOSE* 17GM PACKET PO SCH (08:35)
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
[2017-01-29] MEDS ORDERED: HYDRO50TAB PO (09:21)
[2017-01-29] MEDS ORDERED: ARIP5TA PO (09:21)
[2017-01-29] MEDS ORDERED: MIRT15TA3 PO (09:21)
[2017-01-29] MEDS ORDERED: CELE10TA PO (09:21)
[2017-01-29] MEDS ORDERED: FERR1TAB8 PO (13:09)
== END 2017-01-29 13:20 | disposition home or self-care (01) | DRG 885 ==
LOC: M ED 21:47 → EDBD 21:47 → M ED INP 01-16 06:26 → M PSY 01-16 08:00
PROVIDERS: ADMIT Psychiatry & Neurology Psychiatry; ATTEND Psychiatry & Neurology Psychiatry
DX: F33.2 Major depressive disorder, recurrent severe without psychotic features (principal); F50.9 Eating disorder, unspecified; Z79.899 Other long term (current) drug therapy; Z91.5 Personal history of self-harm; D64.9 Anemia, unspecified; R94.6 Abnormal results of thyroid function studies